=== PATIENT | male | born 1950 | race Caucasian/White ===

== ENCOUNTER 2020-12-25 08:07 | Outpatient (CLI) | payer MEDICARE, OTHER, SELFPAY ==
--- NOTE | ~2020-12-25 | XR_ITS ---
EXAMINATION: XR shoulder RT min 2V DATE: 12/25/2020 08:19 INDICATION: Chronic right shoulder pain. TECHNIQUE: 4 views of right shoulder were obtained. COMPARISON: None. FINDINGS: Bone alignment is normal. No fracture. Glenohumeral joint is normal. There is moderate acro mioclavicular joint osteoarthritis. IMPRESSION: 1. Moderate right acromioclavicular joint osteoarthritis. Reviewed, dictated and finalized at location A.
[2020-12-25 18:37] LABS: Basophils Absolute Auto 0.1 K/mm3 (0.0-0.1); Eosinophils Absolute Auto 0.2 K/mm3 (0-0.3); Eosinophils Percent Auto 2.5 % (0-4.4); Hematocrit 46.3 % (42.0-52.0); Hemoglobin 14.4 g/dL (14.0-18.0); Immature Granulocyte Absolute 0.03 K/mm3 (0.00-0.031); Immature Granulocyte Percent A 0.4 % (0-0.5); Lymphocytes Percent Auto 24.7 % (18.3-44.2); Mean Corpuscular HGB Conc 31.1 g/dl (32-36); Mean Corpuscular Hemoglobin 27.7 pg (26-34); Mean Corpuscular Volume 89.2 fl (80-100); Mean Platelet Volume 10.4 fl (7.4-10.4); Monocytes Absolute Auto 0.8 K/mm3 (0.1-0.6); Monocytes Percent Auto 10.7 % (2.6-8.5); Neutrophils Absolute Auto 4.4 K/mm3 (1.3-6.7); Neutrophils Percent Auto 60.7 % (45.5-73.1); Platelet Count Result 329 k/mm3 (150-375); Red Blood Count 5.19 M/mm3 (4.6-6.20); Red Cell Distribution Width 13.7 % (11.5-14.5); White Blood Count 7.3 K/mm3 (4.5-10.0)
[2020-12-25 18:45] LABS: Add Urine Microscopic? YES; Appearance Urine Clear (Clear); Bilirubin Urine Negative (Negative); Blood Urine Negative (Negative); Color Urine Yellow (Yellow); Glucose Urine UA Negative (Negative); Ketones Urine Negative (Negative); Leukocyte Esterase Ur Negative LEU/UL (Negative); Mucus Urine Rare /lpf; Nitrate Urine Negative (Negative); Protein Urine 1+ mg/dL (Negative); RBC Urine 0-2 /hpf (0-2); Specific Grav Ur 1.021 (1.001-1.035); Urobilinogen Urine Negative mg/dL (<2.0); WBC Urine 0-3 /hpf
[2020-12-25 18:49] LABS: Alanine Aminotransferase 33 U/L (4-50); Albumin Level 4.3 g/dL (3.5-5.1); Alkaline Phosphatase 93 U/L (38-126); Anion Gap 7 mmol/L (8-16); Aspartate Amino Transferase 36 U/L (17-59); Bilirubin,Total 0.9 mg/dL (0.2-1.3); Blood Urea Nitrogen 19 mg/dL (9-20); Calcium 9.5 mg/dL (8.4-10.2); Carbon Dioxide 27 mmol/L (22-30); Chloride 103 mmol/L (98-107); Cholesterol 173 mg/dL (0-200); Estimated Glomerular Filt Rate > 60; Glucose 108 mg/dL (65-110); HDL Direct 55 mg/dL; Potassium 4.3 mmol/L (3.4-5.0); Sodium 137 mmol/L (137-145); Triglycerides 147 mg/dL (<150)
[2020-12-25 19:01] LABS: LDL Cholesterol Direct 65 mg/dL
[2020-12-25 19:19] LABS: Erythrocyte Sedimentation Rate 10 mm/hr (0-20); Prostate Specific Antigen 2.2 ng/mL (< OR = 4.0)
[2020-12-25 19:53] LABS: Folic Acid 6.6 ng/mL (2.76->20)
== END 2020-12-25 08:08 | disposition home or self-care (01) ==
PROVIDERS: PCP Family Medicine; Visit Provider Family Medicine
DX: M19.011 Primary osteoarthritis, right shoulder (principal); D48.9 Neoplasm of uncertain behavior, unspecified; Z79.899 Other long term (current) drug therapy; Z12.5 Encounter for screening for malignant neoplasm of prostate; Z82.62 Family history of osteoporosis; I10 Essential (primary) hypertension; R51.9 Headache, unspecified
CPT/HCPCS: 36415; 73030; 80053; 80061; 81001; 82306; 82607; 82746; 84153; 84443; 85025; 85652; G0103

== ENCOUNTER 2021-02-15 08:34 | Outpatient (CLI) | payer MEDICARE, OTHER, SELFPAY ==
--- NOTE | ~2021-02-15 | XR_ITS ---
XR elbow LT min 3V 02/15/2021 08:46 Indication: Left elbow pain. No injury. Procedure: 4 views left elbow Comparison: No prior studies for comparison. Findings: There is a benign supracondylar process of the distal aspect of the humerus. No fracture, s ubluxation or dislocation. There is anatomic alignment. Impression: 1: No acute bone or joint abnormality. 2: Benign supracondylar process which can rarely be associated with nerve entrapment. Reviewed, dictated and finalized at location B. Impression: 1: No acute bone or joint abnormality. 2: Benign supracondylar process which can rarely be associated with nerve entr apment.
== END 2021-02-15 08:35 | disposition home or self-care (01) ==
PROVIDERS: PCP Family Medicine; Visit Provider Family Medicine
DX: M25.529 Pain in unspecified elbow (principal)
CPT/HCPCS: 73080

== ENCOUNTER 2021-02-16 15:00 | Outpatient (RCR) | payer MEDICARE, OTHER, SELFPAY ==
--- NOTE | 2021-01-12 11:52 | PTOPEVAL ---
Thank you for referring Ray Santos to [facility].? The patient is scheduled to be seen for therapy? 2 x/week for 5 weeks. Please review, sign, date and return this plan of care SHAWN. I agree with and certify that the following plan of care is medically necessary. Referring Physician Date Attending Provider: Tadeo Heath DO Diagnosis right shoulder Onset 6 months Cause unknown Subjective Information He had been performing therapy Query Text:As Reported By Patient/ on his own. Exercises consist Family of hanging from bar and selvin shoulder ext for chest stretching. Denies any injury to right UE. He c/o pain with UE in front holding onto bike. c/o sharp pain in the posterior shoulder with reaching. He reports minimal limitations with reaching and lifting. He has pain with lifting, reaching and riding his bike. Denies any pain waking him at night. Also c/o left elbow pain with pain with wrist motion and gripping strength. Pain Assessment Right Arm(s) Reported Pain Level 1 Pain Description Sharp Pain Frequency Chronic,Intermittent Lowest Pain Intensity 0 Greatest Pain Intensity 4 Pain Aggravating Factors Exercise/Activity Upper Extremity Range of Motion Scapular/ Shoulder Range of Motion Right Scapular: Retraction Hypomobile Scapular: Protraction Hypomobile Scapular Downward Rotation Hypomobile Scapular Upward Rotation Hypomobile Shoulder Flexion - Active 145 Shoulder Extension - Active 40 Shoulder Abduction - Active 135 Shoulder Medial Rotation - Active 65 Shoulder Lateral Rotation - Active 80 Scapular/Shoulder Range of Motion rotation measured with GH Comments joint abdcuted 90 dg Upper Extremity Muscle Strength Testing Scapular/Shoulder Left Shoulder Flexion Strength 4- Good - Shoulder Extension Strength 5 Normal Shoulder Abduction Strength 5 Normal Shoulder Medial Rotation Strength 5 Normal Shoulder Lateral Rotation Strength 5 Normal Right Shoulder Flexion Strength 4- Good - Shoulder Extension Strength 5 Normal Shoulder Abduction Strength 5 Normal Shoulder Medial Rotation Strength 4- Good - Shoulder Lateral Rotation Strength 4- Good - Shoulder Strength Comments pain with resistance Muscle Length Testing M
--- NOTE | 2021-02-16 15:36 | PTOPEVAL ---
Physical Therapy Discharge Summary Thank you for referring Ray Santos to [facility].? Ray has attended 8 therapy visits to address his shoulder pain. He demonstrates improved motion, strength and tolerance with daily task. He has achieved his therapy goals at this time. Will DC skilled therapy services at this time. Please review, sign, date and return this discharge summary SHAWN. I agree with and certify that the following plan of care is medically necessary. Referring Physician Date Attending Provider: Tadeo Heath DO Diagnosis right shoulder Onset 6 months Cause unknown Subjective Information Denies any pain with reaching Query Text:As Reported By Patient/ motion. Only has pain with Family push-up type motion. He is performing his HEP. Denies any problems with holding onto bike handles. Denies any limitations with ADL's, IADL's , sleeping or UE task. Denies any limitations with carrying objects. Pain Assessment Self Report Pain Assessment Right Arm(s) Reported Pain Level 0 Pain Frequency Intermittent Lowest Pain Intensity 0 Greatest Pain Intensity 1 Upper Extremity Range of Motion Scapular/ Shoulder Range of Motion Right Scapular: Retraction Hypomobile Scapular Upward Rotation Hypomobile Shoulder Flexion - Active 165 Shoulder Extension - Active 48 Shoulder Abduction - Active 161 Shoulder Medial Rotation - Active 70 Shoulder Medial Rotation - Active T10:Reach Behind the Back Shoulder Lateral Rotation - Active 85 Shoulder Lateral Rotation - Active T2:Reach Behind the Head Scapular/Shoulder Range of Motion rotation measured with GH Comments joint abducted 90 dg Upper Extremity Muscle Strength Testing Scapular/Shoulder Left Scapular Retraction - Middle Trapezius 3+ Fair + Scapular Retraction - Lower Trapezius 3- Fair - Shoulder Flexion Strength 5 Normal Shoulder Extension Strength 5 Normal Shoulder Abduction Strength 5 Normal Shoulder Medial Rotation Strength 5 Normal Shoulder Lateral Rotation Strength 5 Normal Right Scapular Retraction - Middle Trapezius 3+ Fair + Scapular Retraction - Lower Trapezius 3- Fair - Shoulder Flexion Strength 5 Normal Shoulder Extension Strength 5 Normal Shoulder Abduction Strength 5 Normal Shoulder Medial Rotation Strength 5 Normal Shoulder Lateral Rotation Strength 5 Normal Shoulder Strength Comments no pain with resistance Palpation Assessment Palpation tenderness with tightness of right upper/middle trap and teres minor PT
== END 2021-02-17 08:52 | disposition home or self-care (01) ==
LOC: ANHPT 15:00
PROVIDERS: PCP Family Medicine; Visit Provider Family Medicine
DX: M25.512 Pain in left shoulder (principal)
CPT/HCPCS: 97035; 97110; 97140; 97162

== ENCOUNTER 2021-04-06 08:46 | Outpatient (CLI) | payer MEDICARE, OTHER, SELFPAY | END 2021-04-06 08:47 | disposition home or self-care (01) | LOC: ANHBWCLAB 08:48 | PROVIDERS: PCP Family Medicine; Visit Provider Family Medicine | DX: E53.8 Deficiency of other specified B group vitamins (principal) | CPT/HCPCS: 36415; 82607 ==

== ENCOUNTER 2021-08-24 10:17 | Outpatient (CLI) | payer MEDICARE, OTHER, SELFPAY ==
[2021-08-26 15:48] LABS: H pylori Ag Stool Not Detected (Not Detected)
== END 2021-08-24 10:18 | disposition home or self-care (01) ==
PROVIDERS: PCP Family Medicine; Visit Provider Family Medicine
DX: K21.9 Gastro-esophageal reflux disease without esophagitis (principal)
CPT/HCPCS: 87338

== ENCOUNTER 2021-12-13 14:59 | Outpatient (CLI) | payer MEDICARE, OTHER, SELFPAY ==
[2021-12-16 13:23] LABS: H pylori Ag Stool Not Detected (Not Detected)
== END 2021-12-13 15:00 | disposition home or self-care (01) ==
PROVIDERS: PCP Family Medicine; Visit Provider Family Medicine
DX: K21.9 Gastro-esophageal reflux disease without esophagitis (principal)
CPT/HCPCS: 87338

== ENCOUNTER 2022-03-17 09:41 | Outpatient (CLI) | payer MEDICARE, OTHER, SELFPAY ==
[2022-03-17 19:14] LABS: Basophils Absolute Auto 0.1 K/mm3 (0.0-0.1); Eosinophils Absolute Auto 0.3 K/mm3 (0-0.3); Eosinophils Percent Auto 3.7 % (0-4.4); Hematocrit 46.8 % (42.0-52.0); Hemoglobin 14.8 g/dL (14.0-18.0); Immature Granulocyte Absolute 0.02 K/mm3 (0.00-0.031); Immature Granulocyte Percent A 0.3 % (0-0.5); Lymphocytes Absolute Auto 1.84 K/mm3 (0.9-3.2); Lymphocytes Percent Auto 23.5 % (18.3-44.2); Mean Corpuscular HGB Conc 31.6 g/dl (32-36); Mean Corpuscular Hemoglobin 27.6 pg (26-34); Mean Corpuscular Volume 87.3 fl (80-100); Mean Platelet Volume 10.2 fl (7.4-10.4); Monocytes Absolute Auto 0.7 K/mm3 (0.1-0.6); Monocytes Percent Auto 9.2 % (2.6-8.5); Neutrophils Absolute Auto 4.9 K/mm3 (1.3-6.7); Neutrophils Percent Auto 62.3 % (45.5-73.1); Platelet Count Result 346 k/mm3 (150-375); Red Blood Count 5.36 M/mm3 (4.6-6.20); Red Cell Distribution Width 13.8 % (11.5-14.5); White Blood Count 7.8 K/mm3 (4.5-10.0)
[2022-03-17 19:21] LABS: Alanine Aminotransferase 34 U/L (6-50); Albumin Level 4.7 g/dL (3.5-5.1); Alkaline Phosphatase 100 U/L (38-126); Anion Gap 13 mmol/L (8-16); Aspartate Amino Transferase 56 U/L (17-59); Bilirubin,Total 0.7 mg/dL (0.2-1.3); Blood Urea Nitrogen 21 mg/dL (9-20); Calcium 9.8 mg/dL (8.4-10.2); Carbon Dioxide 27 mmol/L (22-30); Chloride 101 mmol/L (98-107); Cholesterol 194 mg/dL (0-200); Estimated Glomerular Filt Rate > 60; Glucose 95 mg/dL (65-110); HDL Direct 47 mg/dL; Potassium 4.4 mmol/L (3.4-5.0); Sodium 141 mmol/L (137-145); Triglycerides 171 mg/dL (<150)
[2022-03-17 19:33] LABS: LDL Cholesterol Direct 93 mg/dL
[2022-03-17 19:49] LABS: Prostate Specific Antigen 2.9 ng/mL (< OR = 4.0)
== END 2022-03-17 09:42 | disposition home or self-care (01) ==
LOC: ANHBWCLAB 09:42
PROVIDERS: PCP Family Medicine; Visit Provider Family Medicine
DX: M25.519 Pain in unspecified shoulder (principal); I10 Essential (primary) hypertension; Z12.5 Encounter for screening for malignant neoplasm of prostate
CPT/HCPCS: 36415; 80053; 80061; 84153; 85025; G0103

== ENCOUNTER 2023-03-27 08:37 | Outpatient (CLI) | payer MEDICARE, OTHER, SELFPAY ==
[2023-03-27 19:09] LABS: Anion Gap 9 mmol/L (8-16); Blood Urea Nitrogen 19 mg/dL (9-20); Calcium 10.1 mg/dL (8.4-10.2); Carbon Dioxide 28 mmol/L (22-30); Chloride 101 mmol/L (98-107); Cholesterol 193 mg/dL (0-200); Estimated Glomerular Filt Rate > 60; Glucose 103 mg/dL (65-110); HDL Direct 47 mg/dL; Potassium 4.1 mmol/L (3.4-5.0); Sodium 138 mmol/L (137-145); Triglycerides 146 mg/dL (<150)
[2023-03-27 19:22] LABS: LDL Cholesterol Direct 91 mg/dL
[2023-03-27 19:39] LABS: Prostate Specific Antigen 5.1 ng/mL (< OR = 4.0)
[2023-03-27 20:14] LABS: Folic Acid 12.2 ng/mL (2.76->20)
== END 2023-03-27 08:38 | disposition home or self-care (01) ==
LOC: ANHBWCLAB 08:40
PROVIDERS: PCP Nurse Practitioner Adult Health; Visit Provider Nurse Practitioner Adult Health
DX: R03.0 Elevated blood-pressure reading, without diagnosis of hypertension (principal); I10 Essential (primary) hypertension; Z12.5 Encounter for screening for malignant neoplasm of prostate; E53.8 Deficiency of other specified B group vitamins
CPT/HCPCS: 36415; 80048; 80061; 82607; 82746; 84153; G0103

== ENCOUNTER 2023-04-13 09:32 | Outpatient (CLI) | payer MEDICARE, OTHER, SELFPAY ==
--- NOTE | ~2023-04-13 | XR_ITS ---
EXAMINATION: XR abdomen/kub 1V INDICATION: Unspecified abdominal pain TECHNIQUE: Supine views of the abdomen were obtained on 2 radiographs. COMPARISON: None FINDINGS: The bowel gas pattern is unremarkable. There are no dilated loops of bowel. No free intrape ritoneal gas is identified. There is moderate lumbar spondylosis. Mild osteoarthritis is noted in the hips. IMPRESSION: 1. No radiographic correlate for the patient's symptoms. Reviewed, dictated and finalized at location L. [employer]
--- NOTE | ~2023-04-13 | XR_ITS ---
Clinical Indication: Chest pain PA and lateral views of the chest: Comparison: None Findings: The lungs are clear, without evidence of focal consolidation or pleural effusion. Cardiome diastinal silhouette is within normal limits. Bones and soft tissues are unremarkable. Impression: Normal chest. Reviewed, dictated and finalized at location . F ACCOUNTING OFFICER Impression: Normal chest.
== END 2023-04-13 09:33 | disposition home or self-care (01) ==
LOC: ANHBWCIMG 09:34
PROVIDERS: PCP Nurse Practitioner Adult Health; Visit Provider Nurse Practitioner Adult Health
DX: R10.9 Unspecified abdominal pain (principal); R07.89 Other chest pain
CPT/HCPCS: 71046; 74018

== ENCOUNTER 2023-06-12 13:18 | Outpatient (CLI) | payer MEDICARE, OTHER, SELFPAY ==
--- NOTE | ~2023-06-12 | PE_ITS ---
EXAMINATION: PET_PETPSMAST_PT DATE: 06/12/2023 16:14 INDICATION: Malignant neoplasm of the prostate TECHNIQUE: 8.691 mCi of pipflufolastat F-18 (18-F-DCFPyL) was administered i.v. Low dose computed to mography (CT) images were acquired from the base of the brain to the base of the brain to the proxima l thighs for attenuation correction and anatomic localization. Positron emission tomography (PET) merced ges were acquired in the same distribution beginning 101 minutes after injection. Images including fu sed PET/CT images were reconstructed in axial, coronal, and sagittal planes. Automated exposure contr ol technique was employed. The dose-length product was 1057.52 mGy-cm. COMPARISON: None FINDINGS: Head/neck: Typical pattern of symmetric physiologic increased activity in the lacrimal, parotid and submandibula r glands as well as along the mucosa of the nasal and oral cavities, the monster-, naso- and hypopharynx, the glottis and esophagus. There is also a typical pattern of symmetric tiny foci of mild likely phy siologic neural ganglia uptake at a few bilateral cervical neural foramina. No pathologically enlarge d cervical lymphadenopathy or suspicious foci of increased uptake in the visualized head or neck. Chest: No pulmonary nodules, pneumonia, pulmonary edema or pleural effusion. Heart size normal. No pericardi al effusion thoracic aorta is normal in caliber. No pathologically enlarged or PSMA avid thoracic lym phadenopathy. Abdomen/pelvis/proximal thighs: Physiologic renal accumulation and excretion of activity in the kidneys, bladder and along portions o f ureters. Subcentimeter focus of increased PSMA activity at the left posterior prostate in the regio n of the junction with the left seminal vesicle with maximal SUV of 7.9. Additional small focus of mi ld uptake with maximal SUV of 3.5 posterior to the right external iliac vein potentially representing a small metastatic right obturator lymph node. Normal degree and slightly heterogenous pattern of in creased uptake throughout the liver and spleen without radiologic correlate or dominant PSMA avid les ion. The gallbladder, pancreas and bilateral adrenal glands are normal. Moderate uptake scattered thr oughout the bowels with typical duodenal and proximal jejunal predominance and without radiologic cor relate, also likely physiologic. No other abnormal foci of increased uptake or pathologically enlarge d lymphadenopathy in the abdomen, pelvis or proximal thighs. Musculoskeletal: Mild lumbar levocurvature with severe spondylosis. Small densely sclerotic bone islands at the right sacral ala and right posterior iliac spine. No suspicious lytic, blastic or PSMA avid bone lesions IMPRESSION: 1. Focus of increased uptake at the left posterior prostate near its confluence with the left seminal vesicle consistent with primary prostate cancer potentially with extension into the seminal vesicle. 2. Small focus of mild uptake equivocal for metastatic disease in a small right obturator lymph node. Reviewed, dictated and finalized at location A. H MAKER IMPRESSION: 1. Focus of increased uptake at the left posterior prostate near its confluence with the left seminal vesicle consistent with primary prostate cancer potentia lly with extension into the seminal vesicle. 2. Small focus of mild uptake equivocal for metastatic disease in a small right obturator lymph node.
== END 2023-06-12 13:19 | disposition home or self-care (01) ==
LOC: ANHIMG 13:21
PROVIDERS: PCP Nurse Practitioner Adult Health; Visit Provider Urology
DX: C61 Malignant neoplasm of prostate (principal)
CPT/HCPCS: 78815; A9595

== ENCOUNTER 2023-07-17 11:04 | Outpatient (CLI) | payer MEDICARE, OTHER, SELFPAY ==
--- NOTE | ~2023-07-17 | XR_ITS ---
Right Knee Technique: AP, lateral, and sunrise views were obtained. Clinical History: Pain Findings: No fracture or dislocation is seen. There is moderate degenerative change of the medial com partment. There is mild degenerative change of the lateral compartment, and minimal degenerative beckwith ge of the patellofemoral compartment. Soft tissues are unremarkable. No joint effusion is seen. Impression: Tricompartment degenerative change, as detailed above, worst in the medial compartment. Reviewed, dictated and finalized at location M. Impression: Tricompartment degenerative change, as detailed above, worst in the medial comp artment.
--- NOTE | ~2023-07-17 | XR_ITS ---
Left Knee Technique: AP, lateral, and sunrise views were obtained. Clinical History: Pain Findings: No fracture or dislocation is seen. Moderate tricompartmental degenerative change present. Soft tissues are unremarkable. No joint effusion is seen. Impression: Moderate tricompartmental osteoarthritis. Reviewed, dictated and finalized at [facility]. Impression: Moderate tricompartmental osteoarthritis.
== END 2023-07-17 11:05 | disposition home or self-care (01) ==
LOC: ANHBWCIMG 11:07
PROVIDERS: PCP Family Medicine; Visit Provider Family Medicine
DX: M79.671 Pain in right foot (principal); M79.672 Pain in left foot; M17.0 Bilateral primary osteoarthritis of knee
CPT/HCPCS: 73564; 73630

== ENCOUNTER 2024-06-25 01:00 | Day surgery (SDC) | payer MEDICARE, OTHER, SELFPAY ==
[2024-06-17 09:14] VITALS: BMI 32.5
--- OUTSIDE RECORDS SUMMARY | 2024-06-25 01:03 | XMS_ITS | Clinical Summary ---
Author Organization [facility] Address [address] [place] [address] Care Team Providers Care Laminating Machine Operator Helper Name Role Phone Unavailable Primary Care Provider Unavailabl e Source Comments [facility],non-owned Affiliates and Associated Physician Practices is amultiple site organization consisting of ambulatory clinics and hospital sitesin [place], [place], [place] and [place]. This disclosure is being madepursuant to the Care Everywhere program and may not contain all information available regarding this patient. Last updated 18.[facility] [employer] Social History Tobacco Use Types Packs/Day Years Used Date Smoking Tobacco: Never Assessed Sex and Gender Information Value Date Recorded Sex Assigned at Not on file Gender Identity Not on file Sexual Orientation Not on file Plan of Treatment Health Maintenance Due Date Last Done Comments COLOGUARD (AGES 45-75) - COL ON CA SCREENING 1948 COLON MONITORING 1948 COLONOSCOPY - COLON CA SCREENING 1948 CT COLONOGRAPHY - COLON CA SCREENING 1948 Colorectal Cancer Screening 1948 FIT - COLON CA SCREENING 1948 FLEX SIG - COLON CA SCREENING 1948 LIPID TESTING 1948 MEDICARE AWV 12 MONTHS 1948 HEPATITIS C SCREENING 08/07/1966 DTAP/TDAP/TD VACCINES (1 - Tdap) 08/12/1967 PNEUMOCOCCAL VACCINE 50+ (1 of 1 - PCV) 1998 ZOSTER VACCINE (1 of 2) 1998 Respiratory Syncytial Virus (RSV) Vaccine Pt: or over 60 yrs (1 - 1-dose 75+ series) 08/12/2023 COVID-19 VACCINE ( - 2023-2 5 season) 2023 INFLUENZA VACCINE (#1) 2023 DEPRESSION SCREENING 05/01/2024 HEPATITIS B VACCINE Aged Out No longe r eligible based on patient's age to complete this topic HIB VACCINE Aged Out No longer eligi ble based on patient's age to complete this topic HPV VACCINE Aged Out No longer eligi ble based on patient's age to complete this topic MENINGOCOCCAL (Group B) VACCINE Aged Out No longer eligible based on patient's age to complete this topic MENINGOCOCCAL VACCINE Aged Out No annette geetha eligible based on patient's age [place] [address]
--- OUTSIDE RECORDS SUMMARY | 2024-06-25 01:03 | XMS_ITS | Encounter Summary ---
Author Organization [facility] Address [address] [place] [address] Care Team Providers Care Manager Supplier Name Role Phone Unavailable Primary Care Provider Unavailabl e Encounter Details Date Type Department Care Team (Late st Contact Info) Description 05/24/2021 Lab Requisition [facility] [address] [place] [id number] Johann Harris MD [address] [phone] Social History Tobacco Use Types Packs/Day Years Used Date Smoking Tobacco: Never Assessed Sex and Gender Information Value Date Recorded Sex Assigned at Not on file Gender Identity Not on file Sexual Orientation Not on file documented as of this encounter Plan of Treatment Not on file documented as of this encounter Procedures Procedure Name Priority Date/Time Associated Diagnosis Comments DERMATOPATHOLOGY Routine 05/21/2021 12:0 0 AM CALCULATION REVIEWER documented in this encounter Results * DERMATOPATHOLOGY (05/21/2021 12:00 AM CALCULATION REVIEWER) Case Report Dermatopathology Report Case: [id number] Authorizing Provider: Johann Harris MD Collected: 05/21/2021 12:00 AM Ordering Location: [facility] Received: 05/24/2021 12:20 PM Pathologist: Kamaljit Villela MD Specimen: Skin, right cheek 2 6:29 PM CALCULATION REVIEWER DERMATOPATHOLOGY LABORATORY Final Diagnosis Specimen A. SKIN, right cheek: BASAL CELL CARCINOMA, NODULAR TYPE (C44.319) CALCINOSIS CUTIS (L94.2) 2 6:29 PM CALCULATION REVIEWER DERMATOPATHOLOGY LABORATORY Clinical History BCC. 2 6:29 PM [facility] Gross Description Specimen A: Received is one formalin filled container labeled with the patient's name and designated right cheek. The specimen consists of a shave biopsy measuring [id number]. Jar 0. 2 6:29 PM [facility] Microscopic Description Specimen A. SKIN, right cheek: Within the dermis there are aggregates of basaloid cells with a high nuclear to cytoplasmic ratio and peripheral palisading. Within the dermis, there are aggregates of homogenous amorphous basophilic material consistent with calcium. 2 6:29 PM [facility] Disclaimer An external and internal positive and negative controls are appropriate for the histochemical, immunohistochemical and immunofluorescence stain(s) in this case (if any), except where stated explicitly. The performance characteristics of the stain(s) cited in this report were developed and its performance characteristic determined by the Dermatopathology Laboratory at [facility], directed by Dr. Marzena Villela. These tests need not be, and therefore are not, approved by the [place] Food and Drug Administration. The tests are used for clinical purposes. Billing Codes Specimen Charges Stain Charges 60230 1 2 6:29 PM CALCULATION REVIEWER DERMATOPATHOLOGY LABORATORY Embedded Images 2 6:29 PM [facility] Pathology/Cytolog y TISSUE SPECIMEN FROM SKIN / Unknown 05/21/2021 05/24/2021 12:20 PM CALCULATION REVIEWER Johann Harris MD LAB - PATHOLOGY/CYTO LOGY ORDERABLES DERMATOPATHOLOGY LABORATORY [facility] - Department of Dermatology [address] [phone] documented in this encounter Visit Diagnoses Not on filedocumented in this encounter
--- OUTSIDE RECORDS SUMMARY | 2024-06-25 01:03 | XMS_ITS | Patient Health Summary ---
Author Organization [facility] Address [address] [place] [address] Care Team Providers Care Instruments Sales Representative Name Role Phone Unavailable Primary Care Provider Unavailabl e Note from [facility],non-owned Affiliates and Associated Physician Practices is amultiple site organization consisting of ambulatory clinics and hospital sitesin [place], [place], [place] and [place]. This disclosure is being madepursuant to the Care Everywhere program and may not contain all information available regarding this patient. Last updated 18.[facility] Social History Tobacco Use Types Packs/Day Years Used Date Smoking Tobacco: Never Assessed Sex and Gender Information Value Date Recorded Sex Assigned at Not on file Gender Identity Not on file Sexual Orientation Not on file Procedures * DERMATOPATHOLOGY(Performed 05/21/2021) * DERMATOPATHOLOGY(Performed 05/18/2011) Results * DERMATOPATHOLOGY (05/21/2021 12:00 AM BIOSTATISTICS PROFESSOR) Only the most recent of2 resultswithin the time period is included. Case Report Dermatopathology Report Case: [id number] Authorizing Provider: Johann Harris MD Collected: 05/21/2021 12:00 AM Ordering Location: [facility] Derm[facility] Lab Received: 05/24/2021 12:20 PM Pathologist: Kamaljit Villela MD Specimen: Skin, right cheek 2 6:29 PM BIOSTATISTICS PROFESSOR DERMATOPATHOLOGY LABORATORY Final Diagnosis Specimen A. SKIN, right cheek: BASAL CELL CARCINOMA, NODULAR TYPE (C44.319) CALCINOSIS CUTIS (L94.2) 2 6:29 PM BIOSTATISTICS PROFESSOR DERMATOPATHOLOGY LABORATORY Clinical History BCC. 2 6:29 PM BIOSTATISTICS PROFESSOR DERMATOPATHOLOGY LABORATORY Gross Description Specimen A: Received is one formalin filled container labeled with the patient's name and designated right cheek. The specimen consists of a shave biopsy measuring [id number]. Jar 0. 2 6:29 PM [facility] DERMATOPATHOLOGY LABORATORY Microscopic Description Specimen A. SKIN, right cheek: Within the dermis there are aggregates of basaloid cells with a high nuclear to cytoplasmic ratio and peripheral palisading. Within the dermis, there are aggregates of homogenous amorphous basophilic material consistent with calcium. 2 6:29 PM [facility] DERMATOPATHOLOGY LABORATORY Disclaimer An external and internal positive and negative controls are appropriate for the histochemical, immunohistochemical and immunofluorescence stain(s) in this case (if any), except where stated explicitly. The performance characteristics of the stain(s) cited in this report were developed and its performance characteristic determined by the Dermatopathology Laboratory at [facility], directed by Dr. Marzena Villela. These tests need not be, and therefore are not, approved by the [place] Food and Drug Administration. The tests are used for clinical purposes. Billing Codes Specimen Charges Stain Charges 20225 1 2 6:29 PM [facility] DERMATOPATHOLOGY LABORATORY Embedded Images 2 6:29 PM [facility] DERMATOPATHOLOGY LABORATORY Pathology/Cytolog y TISSUE SPECIMEN FROM SKIN / Unknown 05/21/2021 05/24/2021 12:20 PM [facility] Johann Harris MD LAB - PATHOLOGY/CYTO LOGY ORDERABLES DERMATOPATHOLOGY LABORATORY [facility] - Department of Dermatology [address] [phone]
--- OUTSIDE RECORDS SUMMARY | 2024-06-25 01:03 | XMS_ITS | Referral Summary ---
Author Organization [facility] Address [address] [place] [address] Care Team Providers Care Flight Test Supervisor Name Role Phone Unavailable Primary Care Provider Unavailabl e Source Comments [facility],non-owned Affiliates and Associated Physician Practices is amultiple site organization consisting of ambulatory clinics and hospital sitesin [place], [place], [place] and [place]. This disclosure is being madepursuant to the Care Everywhere program and may not contain all information available regarding this patient. Last updated 18.[facility] Social History Tobacco Use Types Packs/Day Years Used Date Smoking Tobacco: Never Assessed Sex and Gender Information Value Date Recorded Sex Assigned at Not on file Gender Identity Not on file Sexual Orientation Not on file Plan of Treatment Not on file
--- OUTSIDE RECORDS SUMMARY | 2024-06-25 01:04 | XMS_ITS | Continuity of Care Document ---
Author Name [facility] Organization [facility] Care Team Providers Care Bushel Worker Name Role Phone [facility] Unavailable Unavailable Problems Combined list of problems from [facility] facilities. It does not include entries that were removed or entered in error. 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 Medication Details Route Status Patient Instructions Prescription Expires Prescription Number Last Dispense Date Ordering Provider Order Date Order Qty Source ACETAMINOPH EN 325MG TAB TAKE TWO TABLETS BY MOUTH FOUR TIMES A DAY NEEDED ORAL ACTIVE SHAY RAMIRES 2022 [facility] Meloxicam (Meloxicam) , 15mg, Tablet, Oral, [place] Pharmac, 1000 Ea. Bottle Active [id number] 2023 30 Pharmac y Data Transac tion Service Facilit y Meloxicam (Meloxicam) , 15mg, Tablet, Oral, [place] Pharmac, 1000 Ea. Bottle Active [id number] 4 2023 30 Pharmac y Data Transac tion Service Facilit y PANTOPRAZOL E SODIUM (pantoprazo le sodium), 40 MG, TK OLGUIN, ORAL, AJANTA PHARMA L, 30 ea. PACKET Cancele d [id number] : 2023 0 Pharmac y Data Transac tion Service Facilit y PANTOPRAZOL E SODIUM (pantoprazo le sodium), 40 MG, GRANPKT , ORAL, AJANTA PHARMA L, 30 ea. PACKET Cancele d [id number] : 2022 0 Pharmac y Data Transac tion Service Facilit y PANTOPRAZOL E SODIUM (pantoprazo le sodium), 40 MG, GRANPKT , ORAL, AJANTA PHARMA L, 30 ea. PACKET Active [id number] 4 2023 90 Pharmac y Data Transac tion Service Facilit y PANTOPRAZOL E SODIUM (PANTOPRAZO LE SODIUM), 40 MG, TABLET , ORAL, MYLAN, 90 ea. BOTTLE Active [id number] 4 2023 90 Pharmac y Data Transac tion Service Facilit y Allergies, Adverse Reactions, Alerts Combined list of allergies from Department of Defense and Veterans Affairs facilities. It does not include entries that were removed or entered in error. Substance Category Reaction Severity Reaction type Status Date Reported Comments Source CONTRAST MEDIA Propensity to adverse reactions to drug (finding) Urticaria active 3 [facility] LISINOPRIL Propensity to adverse reactions to drug (finding) Cough active 4 [facility] SULFA DRUGS Propensity to adverse reactions to drug (finding) Urticaria active 3 [facility] SULFA-DRUGS Drug allergy (disorder) Unknown active 5 [facility] Immunizations Combined list of available immunizations from the Department of Defense and Veterans Affairs facilities. Immunization Series Date Given Administered By Site Reaction Lot Number CVX Code Drug Engineering Drafter Status Comments Source tuberculin skin test; purified protein derivative solution, intradermal 1 2001 Unknown, Provider [id number] Sanofi Pasteur ([facility]) complet ed tuberculi n skin test; purified protein derivativ e solution, intraderm al DoD rabies vaccine, for intramuscular injection RETIRED CODE 3 1999 Unknown, Provider 18 () complet ed rabies vaccine, for intramusc ular injection RETIRED CODE DoD Tristanian Encephalitis Vaccine SC 3 1999 Unknown, Provider 39 () complet ed Tristanian Encephali tis Vaccine SC DoD rabies vaccine, for intramuscular injection RETIRED CODE 2 1999 Unknown, Provider [id number] 18 Sanofi Pasteur ([facility]) complet ed rabies vaccine, for intramusc ular injection RETIRED CODE DoD Tristanian Encephalitis Vaccine SC 2 1999 Unknown, Provider [id number] A 39 Sanofi Pasteur ([facility]) complet ed Tristanian Encephali tis Vaccine SC DoD rabies vaccine, for intramuscular injection RETIRED CODE 1 1999 Unknown, Provider [id number] 18 Sanofi Pasteur ([facility]) complet ed rabies vaccine, for intramusc ular injection RETIRED CODE DoD Tristanian Encephalitis Vaccine SC 1 1999 Unknown, Provider [id number]*194 A 39 Sanofi Pasteur ([facility]) complet ed Tristanian Encephali tis Vaccine SC DoD hepatitis B vaccine, adult dosage 3 1999 Unknown, Provider [id number] 43 Lederle (LED) complet ed hepatitis B vaccine, adult dosage DoD hepatitis A vaccine, adult dosage 2 1999 Unknown, Provider [id number] 52 [place]ederle (LED) complet ed hepatitis A vaccine, adult dosage DoD yellow fever vaccine 1 1999 Unknown, Provider [id number] 37 Connaught (CON) complet ed yellow fever vaccine [facility] tuberculin skin test; purified protein derivative solution, intradermal 1 1999 Unknown, Provider [id number] 96 [place] (CON) complet ed tuberculi n skin test; purified protein derivativ e solution, intraderm al [facility] meningococcal polysaccharid e vaccine (MPSV4) 1 1999 Unknown, Provider [id number] 32 [place] (CON) complet ed meningoco ccal polysacch aride vaccine (MPSV4) [facility] typhoid vaccine, parenteral, other than acetone-kille d, dried 1 1999 Unknown, Provider [id number] 41 [place] (CON) complet ed typhoid vaccine, parentera l, other than acetone-k illed, dried [facility] tetanus and diphtheria toxoids, adsorbed, preservative free, for adult use (2 Lf of tetanus toxoid and 2 Lf of diphtheria toxoid) 1 1999 Unknown, Provider [id number] 09 [place]naught (CON) complet ed tetanus and diphtheri a toxoids, adsorbed, preservat grisel free, for adult use (2 Lf of tetanus toxoid and 2 Lf of diphtheri a toxoid) [facility] poliovirus vaccine, inactivated 1 1999 Unknown, Provider [id number] 10 Mynor (CON) complet ed polioviru s vaccine, inactivat ed DoD hepatitis B vaccine, adult dosage 2 1999 Unknown, Provider [id number] 43 Merck (MSD) complet ed hepatitis B vaccine, adult dosage DoD hepatitis B vaccine, adult dosage 1 1999 Unknown, Provider [id number] 43 SmithKline (SKB) complet ed hepatitis B vaccine, adult dosage DoD hepatitis A vaccine, adult dosage 1 1999 Unknown, Provider [id number] 52 Merck (MSD) complet ed hepatitis A vaccine, adult dosage DoD Vital Signs Combined list of inpatient and outpatient Vital Signs from Department of [facility] and [facility], ranging from 12 months to all on record, depending upon the facility. Vital Sign Value Date Comments Source SYSTOLIC BLOOD PRESSURE 133 03/14/2024 10:41:02 [facility] DIASTOLIC BLOOD PRESSURE 82 03/14/2024 10:41:02 [facility] PULSE OXIMETRY 97 03/14/2024 10:41:02 [facility] WEIGHT 238.6 03/14/2024 10:41:02 [facility] BMI 32 kg/m2 03/14/2024 10:41:02 [facility] PAIN 0 03/14/2024 10:41:02 [facility] TEMPERATURE 97.8 03/14/2024 10:41:02 [facility] PULSE 71 03/14/2024 10:41:02 [facility] RESPIRATION 18 03/14/2024 10:41:02 [facility] Encounters Combined list of: 1) Encounters from Department of Veterans Affairs facilities going backup to the last 18 months, not all VA inpatient encounters are included; 2) Encounters from the Department of Defense facilities going backup to 280 months. Location Location Details Encounter Type Encounter Number Reason For Visit Attending Provider ADM Date DC Date Status Disposition Source [facility] OUTPATIENT [id number] PAOLO BLACK RA F 06/05 Released w/o Limitations [facility](Billie gency Rm) [facility] Outpatient Encounter [id number] 03/24 [facility] OFFICE O/P [place] 60-74 MIN [id number] Diagnos is: ICD-10- CM H90.3 Sensori neural hearing loss, donny BarcenasSHAY L 03/24 [facility] OFFICE O/P EST MOD 30-39 MIN [id number] Diagnos is: ICD-10- CM Z98.49 Catarac t extract ion status, unspeci fied eye LAURA WARREN TTHEW C 04/26 [facility] HEARING AID REPAIR/MOD IFYING [id number] Diagnos is: ICD-10- CM H90.3 Sensori neural hearing loss, PAVEL Walker B 05/09 [facility] HEARING AID FITTING/CH ECKING [id number] Diagnos is: ICD-10- CM H90.3 Sensori neural hearing loss, PAVEL Walker B 06/05 [facility] N [facility] TYMPANOMET RY & REFLEX THRESH [id number] Diagnos is: ICD-10- CM H90.3 Sensori neural hearing loss, PAVEL Walker B 06/05 [facility] HEARING AID FITTING/CH ECKING [id number] Diagnos is: ICD-10- CM H90.3 Sensori neural hearing loss, donny rodriguez TATIANNAPAVEL 08/01 [facility] OFFICE O/P EST MOD 30 MIN [id number] Diagnos is: ICD-10- CM D07.5 Carcino ma in situ of prostat e SHAY RAMIRES 03/14 [facility] Procedures Combined list of: 1) Procedures from Department of Veterans Affairs facilities going back up to thelast 18 months, not all [place] non-surgical procedures are included; 2) All procedures from the Department of Defense facilities. Procedure Procedure Type Code Date Perfomer Comments Sourc e REMOVAL OF SUTURES; BY A PHYSICIAN OTHER THAN THE PHYSICIAN WHO ORIGINALLY CLOSED THE WOUND 07/02/2002 [facility] BIOPSY OF SKIN, SUBCUTANEOUS TISSUE AND/OR MUCOUS MEMBRANE (INCLUDING SIMPLE CLOSURE), UNLESS OTHERWISE LISTED; SINGLE LESION 06/28/2002 [facility] CARDIOVASCULAR STRESS TEST USING MAXIMAL OR SUBMAXIMAL TREADMILL OR BICYCLE EXERCISE,CONTINUOUS ELECTROCARDIOGRAPHIC MONITORING,AND/OR PHARMACOLOGICAL STRESS;W SUPERVISION,INTERPRETATION AND REPORT 06/27/2002 [facility] Social History Combined list of available smoking, tobacco, and other social history from Department of Defense and Veterans Affairs facilities. Social History Type Response Date Comment Sourc e Tobacco smoking status NHIS VA-TOBACCO NEVER USED CIGARETTES 03/14/2024 [facility] of [facility] 03/14/2024 [facility] History of tobacco use [place]-TOBACCO NEVER USED 03/24/2023 [facility] This section is an empty social history section. DoD
--- OUTSIDE RECORDS SUMMARY | 2024-06-25 01:04 | XMS_ITS ---
Author Name [facility] Organization [facility] Address [address] [place] [address] Care Team Providers Care Timber Spotter Name Role Phone SHAY RAMIRES Primary Care Provider Constantino cherry Insurance Providers: All historical and current Section Date Range: From patient's date of to the date document was created. This section includes the names of all active insurance providers for the patient. Insurance Provider Type of Coverage Plan Name Start of Policy Coverage End of Policy Coverage Group Number Member ID Insurance Provider's Telephone Number Policy Palencia's Name Patient's Relationship to Policy Palencia MEDICARE (WNR) MEDICARE (M) PART A Jul 30, 2013 PART A [id number] RADHAJULIA RIBEIRO PATIENT MEDICARE (WNR) MEDICARE (M) PART B Jul 30, 2013 PART B [id number] JULIA GARCIA PATIENT Selected Encounter This section includes the information on record at [place] for the Encounter. Date/Time Encounter Type Encounter Description Reason Provider Source Aug 02, 2023 08:00 AM HEARING AID FITTING/CHECKIN G AUDIOLOGY ICD-10-CM H90.3 Sensorineural hearing loss, bilateral JOSE EDUARDO CAMPUZANO IHMari Encounter Template Text not used by VA Assessments - Encounter Diagnoses This section includes the primary and secondary diagnoses documented for the Encounter. Date/Time Primary/Secondary Diagnosis Diagnosis Name Provider Source Aug 02, 2023 08:26 AM PRIMARY Sensorineural hearing loss, bilateral [place] CAMPUZANO [facility] Social History: Smoking Status (Most current) and Tobacco Use (All prior to encounter date) This section includes the most current, and the historical, smoking and tobacco- related health factors from the [place] facility where the Encounter took place. Current Smoking Status This section includes the most current smoking, or tobacco-related health factor, from the [place] facility where the Encounter took place. Date/Time Current Smoking Status Comment Facil ity Mar 24, 2023 09:00 AM VA-TOBACCO NEVER USED [facility] Encounter Notes: All associated encounter notes This section contains the clinical notes associated to the Encounter. Date/Time Encounter Note(s) Provider Source Aug 02, 2023 08:05 AM AUDIOLOGY MAP CLERK NOTE: LOCAL TITLE: HEARING AIDS ST STANDARD TITLE: AUDIOLOGY MAP CLERK NOTE DATE OF NOTE: AUG 02, 2023@08:05 ENTRY DATE: AUG 02, 2023@08:05:31 AUTHOR: PAVEL CAMPUZANO EXP COSIGNER: URGENCY: STATUS: COMPLETED SUBJECT: audio Pt was seen for fitting of new hearing aid(s). Otoscopy reveals clear ear canals. Aid(s) were programmed to First Fit and adjusted to NAL-NL2 prescriptive target. [x] provider initiated visit Family members were: [] Present [x] Not present [x] Conformity eval completed [] Conformity eval unavailable [] Disposable batteries [x] Rechargeable batteries [] new user []Email and phone number verified with patient for VVC purposes. []Digital divide consult entered []Digital divide consult unnecessary. Patient has access to equipment. [x] experienced user Today, pt was fit with Phonak MokhaOrigineo L90-R with canal lock c shell molds. The aids are programmed as: auto, MB=VC, BT to iPhone. right: [id number] left: [id number] trial period: 12/06/2023 The following standardized education was provided and the pt was able to demonstrate understanding after the education: o Introduction to aids (red/blue, right/left) o Parts of the aid o Batteries and feller buncher operator, if applicable o Insertion/removal of aids. o Volume control, if applicable o Realistic expectations of aids. o Cleaning/maintenance of aids. Wax filters. Bird In Hand. o Review of the items: soft case, hard case o Review of the paperwork: battery reorder form, instruction manual, IOI survey, clinician name/number, L&D form o Review trial period and warranty o Bluetooth handout, if applicable Real-ear measures run and targets met. Vet reported comfort with gain. Went over VC usage. Pt proficient with insertion/removal of aids. Verbalized understanding of hearing aid care/maintenance. Vet reports that his current right Signia PURE CHARGE-GO 7NX R JAYSON worn with canal lock mold is distorted like a broken or blown speaker. Will send for repair then ship to his home: [address] [place] [address] [place] [address] Rec: 1. Full-time hearing aid use to facilitate adjustment to amplification. 2. Contact [facility]iology Clinic [phone] or [phone] for repairs and/or adjustments as needed. (3. Fill out IOI in 30 days Time for appt: 48 min /nida/ Vicente GARRISON Staff Environmental Change Analyst, Surgery Service Signed: 08/02/2023 08:26 PAVEL CAMPUZANO [facility]
--- OUTSIDE RECORDS SUMMARY | 2024-06-25 01:04 | XMS_ITS | Data Portability ---
Author Organization [place] - [facility] [employer], Main Office Address [address] [place] [address] Care Team Providers Care Weaving Loom Operator Name Role Phone SUKH MAK Primary Care Provider SUKH MAK Referring Provider [phone] Assessment Encounter Date Assessment Date Assessment LastModified by Organization Details LastModified Time 08/09/2023 08/09/2023 72-year-old male presents for evaluation of bilateral knees, left worse than right. He reports pain since 1984 when he was serving in the [employer]. He reports he also had a ski injury where he injured his bilateral MCL that was treated non operatively. He reports symptoms are getting progressively worse, currently 10/08. He also has swelling and pain after walking distances or with activity. He has been doing physical therapy and transition to a home exercise program. He has not taken any medications. He has a history of a left knee meniscus procedure done in [facility] about 10 years ago when he was living over there. He is currently retired. Review of systems per patient questionnaire Physical exam: He has tenderness palpation of the medial and lateral joint lines of bilateral knees. Nonantalgic gait. Neutral alignment. Range of motion 0-130 with crepitus. Stable ligaments. Neurovascular intact. 5/5 knee flexion-extensio n strength. X-rays of the bilateral knees were reviewed, demonstrating moderate degenerative changes of the bilateral knees, of the mediolateral compartments with osteophytes and joint space narrowing He is bilateral knee arthritis, left worse than the right. We will continue conservative management. He should continue his home exercise program, and we also prescribed him meloxicam. We can follow-up in 2 months as needed. We discussed next steps if he fails to have improvement would be to consider cortisone injections. He states that he does not want injections or surgery. [email or web address] Not available 08/09/2023 10:39:00 Plan of Treatment Reminders Order Date Submit Date Provider Last Modified By Organization Details Last Modified Time Details Appointments None recorded . Lab None recorded . Referral None recorded . Procedures None recorded . Surgeries None recorded . Imaging None recorded . Medication Orders Mobic 15 mg tablet 024 08/09/19 [email or web address] [id number], [address], [place], [place], [id number], 11:45:24 Patient TargetsNo targets recorded. Patient InstructionsNo instructions recorded. Reason for Referral None Reported. Results Created Date Observation Date Name Description Value Unit Range Abnormal Flag Note LastModifiedBy Organization Detail LastModifiedTime 08/01/19 24 07/17/2023 XR, knee No observ ation record ed. [address], [address], 08/01/2023 16:29:05 08/01/19 24 07/18/2023 XR, knee No observ ation record ed. [address], [address], 08/01/2023 16:29:44 08/02/19 24 07/17/2023 XR, knee, 4 or more view No observ ation record ed. [email or web address] Not Available 06/2023 15:41:50 Result Notes None recorded. Problems Name Problem SNOMED Code Status Onset Date Resolution Date Notes Provider Name and Address Organization Details Recorded Time Pain of bilateral knee joints 20716180584561 4 Active 2023 TANIA Denise [employer] 09:29:19 Problem Notes None recorded. Procedures Surgical History Date Name Laterality Status Provider Name and Address Organization Details Recorded Time Knee Surgery completed TANIA Denise [employer] 08/09/2023 09:28:11 Imaging Results Imaging Date Name Status [facility]Modified by [facility] Details LastModified Time 07/17/2023 XR, knee completed [address], [address], 08/01/2023 16:29:05 07/18/2023 XR, knee completed [address], [place], [address], 08/01/2023 16:29:44 07/17/2023 XR, knee, 4 or more view completed [email or web address] Information not available 08/02/2023 15:41:50 Procedure Notes None recorded. Medical Equipment None Reported. Allergies Allergen ID Allergen Name Allergen Category Reaction Reaction Severity Criticality Documentation Date Start Date Code Code System Note Provider Name and Address Organization Details Recorded Time 25860 sulfur dioxide medicatio n hives Not available Not available 08/09/2023 96810 79 RxNorm TANIA Denise [employer] 4 09:25:32 84588 Iodinated contrast media (substanc e) medicatio n hives Not available Not available 08/09/2023 09413 2004 SNOMED TANIA Denise [employer] 4 09:25:56 Medications Name Sig Start Date Stop Date Status Note LastModified by Organization Details LastModified Time ofloxacin 0.3 % eye drops 08/08 completed Not Available Not Available Not Available meloxicam 15 mg tablet TAKE 1 TABLET BY MOUTH EVERY DAY 2023 active Not Available Not Available Not Avai lable pantoprazol e 20 mg tablet,radha yed release TAKE 1 TABLET BY MOUTH TWICE DAILY 08/08 completed Not Available Not Available Not Available ketorolac 0.5 % eye drops 08/08 completed Not Available Not Available Not Available prednisolon e acetate 1 % eye drops,suspe nsion 08/08 completed Not Available Not Available Not Available pantoprazol e 40 mg tablet,radha yed release TAKE 1 TABLET BY MOUTH EVERY MORNING active Not Available Not Available No t Available pantoprazol e DR 40 mg granules delayed-rel ease for susp in packet MIX THE CONTENTS OF 1 PACKET IN LIQUID AND DRINK BY MOUTH DAILY 08/08 completed Not Available Not Available Not Available PreviDent 5000 Booster Plus 1.1 % dental paste USE ONCE DAILY AT NIGHT BEFORE BEDTIME. NOTHING BY MOUTH FOR 30 MINS AFTER USE. DONT SWALLOW active Not Available Not Available No t Available Vitals Date Recorded Body height Body mass index (BMI) Body weight Pain severity - 0-10 verbal numeric rating [Score] - Reported Provider Name and Address Organization Details Last Updated DateTime 08/09/2023 182.88 cm 31.9 kg/m2 085753.21 g 5 TANIA Denise [facility] [employer] 08/09/2023 09:25:14 Social History Question Answer Notes LastModified by Organizat ion Details LastModified Time Tobacco Smoking Status Unknown If Ever Smoked TANIA Denise null, [facility] [employer] [facility] 08/09/2023 09:27:36 What Is Your Level Of Alcohol Consumption? None [email or web address] Information not available 08/09/2023 What Was The Date Of Your Most Recent Tobacco Screening? 08/09/2023 [email or web address] Information not available 08/09/2023 Sex: Unknown Functional Status None recorded. Mental Status None recorded. Family History Relationship Description Onset Age of this Age Resolved Age Notes LastModified by Organization Details LastModified Time Mother Heart disease [email or web address] Not available 2023 09:26:39 Mother Hypertensive disorder Not available 2023 09:26:55 Mother Diabetes mellitus [email or web address] Not available 2023 09:27:04 Medical History Condition Response CANCER: SPECIFY Y Past Encounters Encounter ID Performer Location Encounter Start Date Encounter Closed Date Diagnosis/Indication Diagnosis SNOMED-CT Code Diagnosis ICD10 Code Diagnosis Note [id number] Tadeo Tran MD [facility] [address] [place] [address] 08/09/2023 09:17:03 08/09/2023 09:50:05 Pain of bilateral knee joints 8324951400 17931 M25.569 Health Concerns Section Related Observation LastModified by Organization Detai ls LastModified Time None Recorded Concern Status LastModified by Organization Details LastModified Time None Recorded Advance Directives Directive None Recorded Payers Encounter Date Sequence Insurance Name Policy Number Policy Palencia Covered Member ID Palencia Member ID Guarantor Name 08/09/2023 1 [employer]-[place] (MEDICARE) Ray Santos [id number] Ray Santos 08/09/2023 2 WPS - FOR LIFE (MEDICARE SUPPLEMENT) Ray Santos [id number] Ray Santos
--- OUTSIDE RECORDS SUMMARY | 2024-06-25 01:04 | XMS_ITS | Clinical Summary ---
Author Organization [facility] Address [address] [place] [address] Care Team Providers Care Data Migration Consultant Name Role Phone Unavailable Primary Care Provider Unavailabl e Encounters Date Type Department Care Team Description 05/29/2024 External Device Data [facility] ABSTRACTION Provider, Abstract 05/23/2024 External Device Data [facility] ABSTRACTION Provider, Abstract from Last 3 Months Social History Tobacco Use Types Packs/Day Years Used Date Smoking Tobacco: Never Assessed Sex and Gender Information Value Date Recorded Sex Assigned at Not on file Legal Sex Male 9:08 AM CDT Gender Identity Not on file Sexual Orientation Not on file Plan of Treatment Health Maintenance Due Date Last Done Comments DTAP/TDAP/TD VACCINES (1 - Tdap) 08/12/1967 COLORECTAL SCREENING 1993 Colorectal Cancer Screening 1993 FIT-DNA Q 3 years 1993 FIT/FOBT Q 1 year 1993 Flex Sig/CT Colonography Q 5 years 1993 PNEUMOCOCCAL VACCINE 65+ YEARS (1 of 1 - PCV) 08/11/18 99 ZOSTER VACCINE (1 of 2) 1998 RSV VACCINE (60+ or ) (1 - 1-dose 75+ series) 08/12/2023 INFLUENZA VACCINE (#1) [address] [place] [id number] [employer]
--- OUTSIDE RECORDS SUMMARY | 2024-06-25 01:04 | XMS_ITS | Encounter Summary ---
Author Name [facility] [place] Organization [facility] [place] Address [address] [place] [address] Care Team Providers Care Dental Insurance Biller Name Role Phone SHAY RUELAS Primary Care Provider Constantino cherry Insurance Providers: [...] PART A Jul 30, 2013 PART A [id number] JULIA GARCIA PATIENT MEDICARE (WNR) MEDICARE (M) PART B Jul 30, 2013 PART B [id number] JULIA GARCIA PATIENT Selected Encounter This section includes the information on record at [place] for the Encounter. 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 Date/Time Primary/Secondary Diagnosis Diagnosis Name Provider Source Mar 14, 2024 11:10 AM PRIMARY Carcinoma in situ of prostate GT RUELAS [facility] Mar 14, 2024 11:10 AM SECONDARY Contact with and exposure to other hazardous substances GT RUELAS [facility] Mar 14, 2024 11:10 AM SECONDARY Other specified malignant neoplasm of skin, unspecified GT RUELAS [facility] Mar 14, 2024 11:10 AM SECONDARY Sensorineural hearing loss, bilateral GT RUELAS [facility] Vital Signs: All taken on the encounter date This section contains inpatient and outpatient Vital Signs collected on the date of the Encounter. Date/Time Temperature Pulse Blood Pressure Respiratory Rate SP02 Pain Height Weight Body Mass Index Source Mar 14, 2024 10:41 AM 97.8 71 133/82 18 97 0 238.6 32 [facility] N Social History: Smoking Status (Most current) and Tobacco Use (All prior to encounter date) This section includes the most current, and the historical, smoking and tobacco- related health factors from the [place] facility where the Encounter took place. Current Smoking Status This section includes the most current smoking, or tobacco-related health factor, from the [place] facility where the Encounter took place. Date/Time Current Smoking Status Comment Mónica price Mar 14, 2024 10:30 AM [place]-TOBACCO NEVER U SED CIGARETTES [facility] Tobacco Use History This section includes a history of the smoking, or tobacco-related health factors, that were collected on or before the date of the Encounter. The data comes from the [place] facility where the Encounter took place. Date/Time Smoking Status/Tobacco Use Comment Shira wilder Mar 14, 2024 10:30 AM [place]-TOBACCO NEVER U SED OTHER TYPE [facility] Mar 24, 2023 09:00 AM [place]-TOBACCO NEVER USED [facility] Encounter Notes: All associated encounter notes This section contains the clinical notes associated to the Encounter. Date/Time Encounter Note(s) Provider Source Mar 14, 2024 10:49 AM PRIMARY CARE NOTE: LOCAL TITLE: PRIMARY CARE PROVIDER ESTABLISHED VISIT ST STANDARD TITLE: PRIMARY CARE NOTE DATE OF NOTE: MAR 14, 2024@10:49 ENTRY DATE: MAR 14, 2024@10:49:53 AUTHOR: SHAY RUELAS EXP COSIGNER: URGENCY: STATUS: COMPLETED PRIMARY CARE PROVIDER ESTABLISHED VISIT STL Has ADDENDA ESTABLISHED PATIENT [id number]: REASON FOR VISIT/CHIEF COMPLAINT: Annual visit. New 03/2023. accompanied him. Sees Dr. Mc Patel with [facility] in [place], [place]. Plans to continue there. Discussed dual care. Dx'd with prostate cancer, treatment in the private sector ongoing. s/p XRT, on hormone shots now. Was on lisinopril, but taken off due to cough. He will record home bps and let his PMD know. [facility]. Knees , shoulders, neck hurt, he was sent to PT by his PMD. Not too helpful. Has declined further work up such as injections or surgery. Take OTCs for pain relief. No prescribed medications. Active. UTD with immunizations. ALLERGIES: SULFA DRUGS, CONTRAST MEDIA ALLERGY REVIEW: Allergy list reviewed and remains current. MEDICATION RECONCILIATION: I have reviewed the patient's medication list with the patient and/or his/her care-swage tender. Handwritten corrections, additions and/or deletions were made to the list. Corrected Outpatient Medication List was provided to the patient/caregiver. Active Outpatient Medications (including Supplies): Active Non-VA Medications Status 1) Non-VA ACETAMINOPHEN 325MG TAB 650MG BY MOUTH FOUR ACTIVE TIMES A DAY NEEDED VITALS (most recent, as listed in the electronic record): B/P: 133/82 (03/14/2024 10:41) Pulse: 71 (03/14/2024 10:41) Temperature: 97.8 F [36.6 C] (03/14/2024 10:41) Weight: 238.6 lb [108.23 kg] (03/14/2024 10:41) Height: 72 in [182.9 cm] (03/24/2023 08:55) BMI: 32.4 Pain: 0 (03/14/2024 10:41) (0-10 scale) PMH: PSH: # left knee surgery 2010 # hearing loss # skin cancer FH: diabetes in mother and Type 1 in his sister. ROS: DENIES CP SOB DIZZINESS HEAT/COLD INTOLERANCE WT LOSS/GAIN BOWEL/BLADDER PROBLEMS HEALTH MAINT: COLONOSCOPY 2019 at [facility] PSA/LEX TETANUS PNEUMOVAX ZOSTAVAX HIV TESTING SH: SMOKE never ETOH denies TATTOOS [employer] 03/30/1978 TO 09/28/1992 [employer] 08/02/1968 TO 07/31/1970 [employer]. , 3 children, one passed from cancer. 5 grands. PE: well appearing gentleman. HEENT: PERRLA EOMI hearing aids NECK: SUPPLE CV: RRR NO M/R/G LUNGS: CLEAR ABD: SOFT NT BS ACTIVE EXT: NO EDEMA PULSES INTACT NEURO: A/O CNI, GAIT NML A/P # left knee pain : arthroscopic surgery 2010, given [facility], PT, [facility], rec therapy. # hearing loss: [facility] # skin cancer: f/up with private dermatology. # prostate cancer: f/b private urology. XRT/hormone RX. HM: Given all clinc/ER information and contact numbers. Aware that does not have emergency services nor a designated walk in clinic. [place] 03/2023. DISCUSSED DIET AND EXERCISE KEEP FUTURE APPOINTMENTS PATIENT VOICED UNDERSTANDING OF PLAN OF CARE RTC 12 mo, prn PREVENTION & SCREENING: ALCOHOL: Clinical Reminder not due now or within a month BLOOD PRESSURE: Clinical Reminder not due now or within a month HEMOGLOBIN A1C: Clinical Reminder not due now or within a month /nida/ SHAY RUELAS Staff Physician Signed: 03/14/2024 11:10 03/14/2024 ADDENDUM STATUS: COMPLETED Toxic Exposure Screening Follow-Up - NS,P: Exposure Concern(s): 03/14/2024 Agent Yellowstone - Toxic Exposure Concern 03/24/2023 Doesnt Know - Toxic Exposure Concern Follow-up Question(s): 03/14/2024 No Questions - Toxic Exposure Concern 03/24/2023 No Questions - Toxic Exposure Concern [place]/caregiver has health or medical concerns related to their concern of environmental exposure. Concern: prostate cancer The following connections were provided to the [place]/caregiver: No connections needed at this time /nida/ SHAY RUELAS Staff Physician Signed: 03/14/2024 12:24 SHAY RUELAS [facility] Mar 14, 2024 10:43 AM NURSING NOTE: LOCAL TITLE: V15 PACT FACE TO FACE NOTE ST[facility] STANDARD TITLE: NURSING NOTE DATE OF NOTE: MAR 14, 2024@10:43 ENTRY DATE: MAR 14, 2024@10:43:44 AUTHOR: JOSÉ MIGUEL MONDRAGON COSIGNER: URGENCY: STATUS: COMPLETED Provider Visit: Patient Identifiers : Full Name Date of Reason for visit: Established Follow-Up Mode of Arrival: Ambulatory Allergy Review: SULFA DRUGS, CONTRAST MEDIA Allergy list reviewed and remains current. Recent Vital Signs: Temperature: 97.8 F [36.6 C] (03/14/2024 10:41) Pulse: 71 (03/14/2024 10:41) Respiration: 18 (03/14/2024 10:41) B/P: 133/82 (03/14/2024 10:41) Pain: 0 (03/14/2024 10:41) Wt: 238.6 lb [108.23 kg] (03/14/2024 10:41) Ht: 72 in [182.9 cm] (03/24/2023 08:55) BMI: 32.4 POX: 97% (03/14/2024 10:41) Would you like to discuss any personal problem, family problem, alcohol use, drug use, or a mental or emotional illness? No Contact provided Primary Care phone number and encouraged to call if any questions or concerns. Review that after hours nurse line [phone] and emergency room are available 21/11 for patient use. Contact verbalized good understanding. Toxic Exposure Screening - CP,DI,L,NS,P,PH,S,U: The /caregiver was asked if they believe the [place] experienced any toxic exposure(s), such as Airborne Hazards and Open Burn Pit, Door War related exposures, Agent [place], Radiation, contaminated water at [place] or other such exposures, while serving in the Armed Forces. [place]/caregiver believes the was exposed to the following while serving in the Armed Forces: Agent [place]: /caregiver was made aware of educational resources that includes information on the Registry Program, presumptive conditions and how to file a claim. Printed information was offered and provided if desired. No questions at this time /caregiver was informed of local points of contact. Contact information for local resources: [facility] System Registry Exam Program: [phone] Eligibility: [phone] ASHLEY [id number] Toxic Exposure Screening Follow-Up reminder is needed. Name of person notified: Dr. Ruelas Frail/Elderly Screen: ADL Screen - Perez Index of [place] in Activities of Daily Living Bathing: (3 Points) Receives no assistance (gets in and out of tub by self, if tub is usual means of bathing) Dressing: (3 Points) Gets clothes and gets completely dressed without assistance. Toileting: (3 Points) Goes to toilet room , cleans self, and arranges clothes without assistance (may use object for support such as cane, walker, or wheelchair, and may manage own night bedpan or commode, emptying same next morning) Transferring: (3 Points) Moves in and out of bed and in and out of chair without assistance (may be using object for support, such as cane or walker) Continence: (3 Points) Controls urination and bowel movement completely by self Feeding: (3 Points) Feeds self without assistance Total Score: 18 Points 18 = High (patient independent) 6 = Low (patient very dependent) IADL Screen - [place] Instrumental Activities of Daily Living Scale Ability to use telephone: (1 point) Operates Telephone on own initiative; looks up and dials numbers. Shopping: (1 point) Takes care of all shopping needs independently. Food preparation: (1 point) Plans, prepares, and serves adequate meals independently. Housekeeping: (1 point) Performs light daily tasks such as dishwashing, bed making. Laundry: (1 point) Launders small items, rinses socks, stockings, etc. Mode of transportation: (1 point) Travels independently on public transportation or drives own car. Responsibility for own medications: (1 point) Is responsible for taking medications in correct dosages at correct times. Ability to handle finances: (1 point) Manages financial matters independently (budgets, writes checks, pays rent and bills, goes to bank); collects and keeps track of income. Total score: 8 points 8 = High function, independent 0 = Low function, dependent Falls Screen: No falls within the past 12 months. Incontinence Screen: No incontinence. Tobacco Use Screening - U,L,N,S,PS,M,DE,PH,P: The patient has never smoked cigarettes. The patient has never used other types of tobacco. Alcohol Use Screen (AUDIT-C) - V: Alcohol Screen: SCREEN FOR ALCOHOL (AUDIT-C) An alcohol screening test (AUDIT-C) was negative (score=0). 1. How often did you have a drink containing alcohol in the past year? Consider a drink to be a 12 ounce can or bottle of regular beer, 8 ounces of malt liquor, a 5 ounce glass of table wine, or a 1.5 ounce shot of liquor (like scotch, gin, or vodka). Never 2. How many drinks containing alcohol did you have on a typical day when you were drinking in the past year? Response not required due to responses to other questions. 3. How often did you have six or more drinks on one occasion in the past year? Response not required due to responses to other questions. Depression Screening - V: Perform PHQ-2 A PHQ-2 screen was performed. The score was 0 which is a negative screen for depression. Over the past two weeks, how often have you been bothered by the following problems? 1. Little interest or pleasure in doing things Not at all 2. Feeling down, depressed, or hopeless Not at all Suicide Screen - V: C-SSRS Screening [place]-Suicide Severity Rating Scale (C-SSRS Screener) 1. Over the past month, have you wished you were or wished you could go to sleep and not wake up? No 2. Over the past month, have you had any actual thoughts of killing yourself? No 3. Over the past month, have you been thinking about how you might do this? Response not required due to responses to other questions. 4. Over the past month, have you had these thoughts and had some intention of acting on them? Response not required due to responses to other questions. 5. Over the past month, have you started to work out or worked out the details of how to kill yourself? Response not required due to responses to other questions. 6. If yes, at any time in the past month did you intend to carry out this plan? Response not required due to responses to other questions. 7. In your lifetime, have you ever done anything, started to do anything, or prepared to do anything to end your life (for example, collected pills, obtained a gun, gave away valuables, went to the roof but didn't jump)? No 8. If YES, was this within the past 3 months? Response not required due to responses to other questions. /nida/ JOSÉ MIGUEL MONDRAGON LPN LICENSED PRACTICAL NURSE Signed: 03/14/2024 10:50 JOSÉ MIGUEL MONDRAGON [facility]
[2024-06-25 08:40] VITALS: BP 155/88; PULSE 80; RESP 18; TEMP 35.9; O2SAT 97; BMI 31.9
--- NOTE | 2024-06-25 08:49 | P.PNAN_ITS ---
Anes - Initial Pre Proc Eval Procedure: Operation Date: 06/25/24 10:00 Proposed Procedures p Colonoscopy - Alexi Clark MD Date/Time: 06/25/24 08:49 Surgeon: Alexi Clark MD Pre Op Diagnosis: family hx of malignant neoplasm of digestive organ Patient Data Age: 73 Gender: M Height: 1.83 m Weight: 106.9 kg Last Vital Signs Temp 35.9 C L 06/25/24 08:40 Pulse 80 06/25/24 08:40 Resp 18 06/25/24 08:40 BP 155/88 H 06/25/24 08:40 Pulse Ox 97 06/25/24 08:40 O2 Del Method Room Air 06/25/24 08:40 Allergies Allergy/AdvReac Type Severity Reaction Status Date / Time Sulfa (Sulfonamide Allergy Unknown Rash Verified 06/25/24 08:39 Antibiotics) Iodinated Contrast Media AdvReac Itching Verified 06/25/24 08:39 Home Medications ?Medication ?Instructions ?Recorded ?Confirmed ?Type cyclobenzaprine 10 mg tablet 10 mg PO TID PRN muscle spasm #30 12/09/21 06/17/24 Rx tabs cetirizine 10 mg tablet (Zyrtec) 10 mg PO DAILY PRN allergy 03/17/22 06/17/24 Rx symptoms #90 tabs polyethylene glycol 3350 17 17 g PO DAILY #510 grams 03/17/22 06/17/24 Rx gram/dose oral powder (Miralax) fluticasone propionate 50 2 spray intranasal DAILY #16 grams 07/05/22 06/17/24 Rx mcg/actuation nasal spray,suspension (Flonase Allergy Relief) mecobalamin (vitamin B12) 1,000 1,000 mcg sublingual DAILY #30 tabs 03/28/23 06/17/24 Rx mcg disintegrating tablet,sublingual pantoprazole 40 mg tablet,delayed See Rx Instructions .Route 12/06/23 06/17/24 Rx release .COMPLEX #90 tabs amlodipine 2.5 mg tablet (Norvasc) 2.5 mg PO DAILY #90 tabs 06/03/24 06/17/24 Rx Patient hx anesthesia problems: none Family hx anesthesia problems: none Results Review: All pre-operative results and documents have been reviewed as part of the pre- operative evaluation. [facility] Past Medical History Medical History (Updated 06/25/24 @ 08:50 by Murtaza Malloy DO) Prostate CA Hypertension GERD (gastroesophageal reflux disease) Family History Family History Mother Diabetes mellitus Hypertension Heart problem Father Carcinoma of colon Diabetes mellitus Social History Social History Smoking status: Never smoker Second hand tobacco smoke exposure: No Alcohol intake: never Substance use: never Substance use type: does not use Lack of Transportation: No Lack of Food: Never True Current Housing: I Have Housing Concerned About Future Housing: No Difficulty Paying Gas/Electric Bills: No Difficulty Paying for Meds: No Currently Unemployed: Decline to Answer Education: Decline to Answer Difficulty w/ Childcare or Family Care: No Living arrangements: with family Gender identity (if verbalized by the patient): Male Spiritual care concerns: No Anes - Eval Final PreProcedure Day of Procedure 06/25/24 08:49 Patient weight: obese Heart: regular rate and rhythm Lungs: clear to auscultation Airway: Mallampati scale class II Neurological: alert and oriented Last oral intake: >/= 8 hours ASA classification: III Emergent: no Anesthetic plan: proceed Anesthesia type and monitoring: general GIVS and standard monitoring Results Review: All pre-operative results and documents have been reviewed as part of the pre- operative evaluation. Informed Consent: The patient's anesthetic plan and its attendant risks and benefits were discussed with the patient/family/POA. Questions were solicited and answers provided to the satisfaction of the patient/family/POA.
[2024-06-25] MEDS: LACTATED RINGERS 1,000 ML 150 ML IV CONT (08:51)
--- NOTE | 2024-06-25 09:43 | PM.IMHP ---
H&P: HPI History of Present Illness Date/Time: 06/25/24 09:43 Chief Complaint: Screening colonoscopy Narrative: This is the patient's 3rd colonoscopy. There are no GI symptoms and there is no family history of colorectal cancer. Review of Systems Review of Systems: All systems reviewed & are unremarkable except as noted in HPI and below PMFSH Past Medical History Medical History (Updated 06/25/24 @ 08:50 by Murtaza Malloy DO) Prostate CA Hypertension GERD (gastroesophageal reflux disease) Family History Family History Mother Diabetes mellitus Hypertension Heart problem Father Carcinoma of colon Diabetes mellitus Social History Social History Smoking status: Never smoker Second hand tobacco smoke exposure: No Alcohol intake: never Substance use: never Substance use type: does not use Lack of Transportation: No Lack of Food: Never True Current Housing: I Have Housing Concerned About Future Housing: No Difficulty Paying Gas/Electric Bills: No Difficulty Paying for Meds: No Currently Unemployed: Decline to Answer Education: Decline to Answer Difficulty w/ Childcare or Family Care: No Living arrangements: with family Gender identity (if verbalized by the patient): Male Spiritual care concerns: No Meds Home Medications and Allergies Home Medications ?Medication ?Instructions ?Recorded ?Confirmed ?Type cyclobenzaprine 10 mg tablet 10 mg PO TID PRN muscle spasm #30 12/09/21 06/17/24 Rx tabs cetirizine 10 mg tablet (Zyrtec) 10 mg PO DAILY PRN allergy 03/17/22 06/17/24 Rx symptoms #90 tabs polyethylene glycol 3350 17 17 g PO DAILY #510 grams 03/17/22 06/17/24 Rx gram/dose oral powder (Miralax) fluticasone propionate 50 2 spray intranasal DAILY #16 grams 07/05/22 06/17/24 Rx mcg/actuation nasal spray,suspension (Flonase Allergy Relief) mecobalamin (vitamin B12) 1,000 1,000 mcg sublingual DAILY #30 tabs 03/28/23 06/17/24 Rx mcg disintegrating tablet,sublingual pantoprazole 40 mg tablet,delayed See Rx Instructions .Route 12/06/23 06/17/24 Rx release .COMPLEX #90 tabs amlodipine 2.5 mg tablet (Norvasc) 2.5 mg PO DAILY #90 tabs 06/03/24 06/17/24 Rx Allergies Allergy/AdvReac Type Severity Reaction Status Date / Time Sulfa (Sulfonamide Allergy Unknown Rash Verified 06/25/24 08:39 Antibiotics) Iodinated Contrast Media AdvReac Itching Verified 06/25/24 08:39 Vital Signs Vital Signs - 24 hr 06/25/24 08:40 Temperature 96.7 F L Pulse Rate 80 Respiratory Rate 18 Blood Pressure 155/88 H Pulse Oximetry 97 Oxygen Delivery Room Air Exam Const: General: cooperative and healthy appearing Resp: Effort & Inspection: normal respiratory effort and able to speak in complete sentences Auscultation: clear to auscultation bilaterally Cardio: Rate: regular rate Rhythm: regular rhythm GI: Inspection: normal to inspection GI Palp: No No hepatosplenomegaly present Auscultation: normal bowel sounds Rectal Exam: deferred Skin: General skin exam: normal color Psych: Appearance: grossly normal Mental Status: mental status grossly normal Assessment and Plan Assessment and plan (1) Colon cancer screening: Code(s): Z12.11 - Encounter for screening for malignant neoplasm of colon Status: Acute Assessment and Plan: The patient is deemed a good candidate for the procedure. Consent signed. Will proceed.
[2024-06-25] MEDS: SIMETHICONE ORAL SUSPENSION 20 MG/0.3 ML 30 ML BOTTLE 0.6 ML IRRIGATION (10:01)
[2024-06-25 10:09] VITALS: BP 129/76; PULSE 69; RESP 18; O2SAT 97
[2024-06-25 10:19] VITALS: BP 130/76; PULSE 64; RESP 15; O2SAT 99
[2024-06-25 10:29] VITALS: BP 152/92; PULSE 63; RESP 25; O2SAT 100
== END 2024-06-25 10:43 | disposition home or self-care (01) ==
PROVIDERS: PCP Family Medicine; Visit Provider Internal Medicine Gastroenterology
PROC: 0DJD8ZZ Inspection of Lower Intestinal Tract, Via Natural or Artificial Opening Endoscopic (ICD-10-PCS; CPT 45378; principal; 2024-06-25 10:00)
DX: Z12.11 Encounter for screening for malignant neoplasm of colon (principal); K64.8 Other hemorrhoids; Z80.0 Family history of malignant neoplasm of digestive organs; E66.9 Obesity, unspecified; Z68.32 Body mass index [BMI] 32.0-32.9, adult
CPT/HCPCS: G0105; J2003; J2704; J7120

== ENCOUNTER 2024-07-03 10:30 | Outpatient (CLI) | payer MEDICARE, OTHER, SELFPAY ==
--- OUTSIDE RECORDS SUMMARY | 2024-07-03 11:52 | XMS_ITS | Patient Health Summary ---
Author Organization [facility] Address [address] [place] [address] Care Team Providers Care Ambulatory Analyst Name Role Phone Unavailable Primary Care Provider Unavailabl e Note from [facility],non-owned Affiliates and Associated Physician Practices is amultiple site organization consisting of ambulatory clinics and hospital sitesin [place], [place], [place]. This disclosure is being madepursuant to the Care Everywhere program and may not contain all information available regarding this patient. Last updated 18.[facility] Social History Tobacco Use Types Packs/Day Years Used Date Smoking Tobacco: Never Assessed Sex and Gender Information Value Date Recorded Sex Assigned at Not on file Gender Identity Not on file Sexual Orientation Not on file Procedures * DERMATOPATHOLOGY(Performed 05/21/2021) * DERMATOPATHOLOGY(Performed 05/18/2011) Results * DERMATOPATHOLOGY (05/21/2021 12:00 AM [facility]) Only the most recent of2 resultswithin the time period is included. Case Report Dermatopathology Report Case: [id number] Authorizing Provider: Johann Harris MD Collected: 05/21/2021 12:00 AM Ordering Location: [facility] DermPath Lab Received: 05/24/2021 12:20 PM Pathologist: Kamaljit Villela MD Specimen: Skin, right cheek 2 6:29 PM [facility] Final Diagnosis Specimen A. SKIN, right cheek: BASAL CELL CARCINOMA, NODULAR TYPE (C44.319) CALCINOSIS CUTIS (L94.2) 2 6:29 PM [facility] Clinical History BCC. 2 6:29 PM [facility] Gross Description Specimen A: Received is one formalin filled container labeled with the patient's name and designated right cheek. The specimen consists of a shave biopsy measuring [id number]. Jar 0. 2 6:29 PM [facility] DERMATOPATHOLOGY LABORATORY Microscopic Description Specimen A. SKIN, right cheek: Within the dermis there are aggregates of basaloid cells with a high nuclear to cytoplasmic ratio and peripheral palisading. Within the dermis, there are aggregates of homogenous amorphous basophilic material consistent with calcium. 2 6:29 PM [facility] DERMATOPATHOLOGY LABORATORY Disclaimer An external and internal positive and negative controls are appropriate for the histochemical, immunohistochemical and immunofluorescence stain(s) in this case (if any), except where stated explicitly. The performance characteristics of the stain(s) cited in this report were developed and its performance characteristic determined by the Dermatopathology Laboratory at [facility], directed by Dr. Marzena Villela. These tests need not be, and therefore are not, approved by the [place] Food and Drug Administration. The tests are used for clinical purposes. Billing Codes Specimen Charges Stain Charges 80176 1 2 6:29 PM [facility] DERMATOPATHOLOGY LABORATORY Embedded Images 2 6:29 PM [facility] DERMATOPATHOLOGY LABORATORY Pathology/Cytolog y TISSUE SPECIMEN FROM SKIN / Unknown 05/21/2021 05/24/2021 12:20 PM [facility] Johann Harris MD LAB - PATHOLOGY/CYTO LOGY ORDERABLES DERMATOPATHOLOGY LABORATORY [facility] - Department of Dermatology [address] [phone]
--- OUTSIDE RECORDS SUMMARY | 2024-07-03 11:52 | XMS_ITS | Clinical Summary ---
Author Organization [facility] Address [address] [place] [address] Care Team Providers Care Tubing Mill Setter Name Role Phone Unavailable Primary Care Provider Unavailabl e Source Comments [facility],non-owned Affiliates and Associated Physician Practices is amultiple site organization consisting of ambulatory clinics and hospital sitesin [place], [place], [place] and [place]. This disclosure is being madepursuant to the Care Everywhere program and may not contain all information available regarding this patient. Last updated 18.[facility] Social History Tobacco Use Types Packs/Day Years [...] on patient's [place] [address]
--- OUTSIDE RECORDS SUMMARY | 2024-07-03 11:52 | XMS_ITS | Referral Summary ---
Author Organization [facility] Address [address] [place] [address] Care Team Providers Care Rn Dialysis Name Role Phone Unavailable Primary Care Provider Unavailabl e Source Comments [facility],non-owned Affiliates and Associated Physician Practices is amultiple site organization consisting of ambulatory clinics and hospital sitesin [place], [place], [place] and [place]. This disclosure is being madepursuant to the Care Everywhere program and may not contain all information available regarding this patient. Last updated 18.[facility] Social History Tobacco Use Types Packs/Day Years Used Date Smoking Tobacco: Never Assessed Sex and Gender Information Value Date Recorded Sex Assigned at Not on file Gender Identity Not on file Sexual Orientation Not on file Plan of Treatment Not on file
--- OUTSIDE RECORDS SUMMARY | 2024-07-03 11:53 | XMS_ITS | Continuity of Care Document ---
Author Name [facility] Organization [facility] Care Team Providers Care Jira Administrator Name Role Phone [facility] Unavailable Unavailable Problems Combined list of problems from [facility] and [facility] [place] [facility] facilities. It does not include entries that were removed or entered in error. 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 and [facility] [place] [facility] facilities.Medications provided include 1) outpatient medications from the last 15 months, and 2) patient-reported medications. Medication Details Route Status Patient Instructions Prescription Expires Prescription Number Last Dispense Date Ordering Provider Order Date Order Qty Source ACETAMINOPH EN 325MG TAB TAKE TWO TABLETS BY MOUTH FOUR TIMES A DAY NEEDED ORAL ACTIVE SHAY RAMIRES 2022 [facility] Meloxicam (Meloxicam) , 15mg, Tablet, Oral, [place] Pharmac, 1000 Ea. Bottle Active [id number] 4 2023 30 Pharmac y Data Transac tion Service Facilit y Meloxicam (Meloxicam) , 15mg, Tablet, Oral, [place] Pharmac, 1000 Ea. Bottle Active [id number] 4 2023 30 Pharmac y Data Transac tion Service Facilit y PANTOPRAZOL E SODIUM (pantoprazo le sodium), 40 MG, TK OLGUIN, ORAL, AJANTA PHARMA L, 30 ea. PACKET Cancele d [id number] : 2023 0 Pharmac y Data Transac tion Service Facilit y PANTOPRAZOL E SODIUM (pantoprazo le sodium), 40 MG, GRANPKT , ORAL, AJANTA PHARMA L, 30 ea. PACKET Cancele d [id number] : 2022 0 Pharmac y Data Transac tion Service Facilit y PANTOPRAZOL E SODIUM (pantoprazo le sodium), 40 MG, GRANPKT , ORAL, AJANTA PHARMA L, 30 ea. PACKET Active [id number] 4 2023 90 Pharmac y Data Transac tion Service Facilit y PANTOPRAZOL E SODIUM (PANTOPRAZO LE SODIUM), 40 MG, TABLET , ORAL, MYLAN, 90 ea. BOTTLE Active [id number] 4 2023 90 Pharmac y Data Transac tion Service Facilit y Allergies, Adverse Reactions, Alerts Combined list of allergies from Department of Defense and Veterans Affairs facilities. It does not include entries that were removed or entered in error. Substance Category Reaction Severity Reaction type Status Date Reported Comments Source CONTRAST MEDIA Propensity to adverse reactions to drug (finding) Urticaria active 3 [facility] LISINOPRIL Propensity to adverse reactions to drug (finding) Cough active 4 [facility] SULFA DRUGS Propensity to adverse reactions to drug (finding) Urticaria active 3 [facility] SULFA-DRUGS Drug allergy (disorder) Unknown active 5 [facility] Immunizations Combined list of available immunizations from the Department of Defense and Veterans Affairs facilities. Immunization Series Date Given Administered By Site Reaction Lot Number CVX Code Drug Project Superintendent Status Comments Source tuberculin skin test; purified protein derivative solution, intradermal 1 2001 Unknown, Provider [id number] Sanofi Pasteur ([facility]) complet ed tuberculi n skin test; purified protein derivativ e solution, intraderm al DoD rabies vaccine, for intramuscular injection RETIRED CODE 3 1999 Unknown, Provider 18 () complet ed rabies vaccine, for intramusc ular injection RETIRED CODE DoD Bermudian Encephalitis Vaccine SC 3 1999 Unknown, Provider 39 () complet ed Bermudian Encephali tis Vaccine SC DoD rabies vaccine, for intramuscular injection RETIRED CODE 2 1999 Unknown, Provider [id number] 18 Sanofi Pasteur ([facility]) complet ed rabies vaccine, for intramusc ular injection RETIRED CODE DoD Bermudian Encephalitis Vaccine SC 2 1999 Unknown, Provider [id number] A 39 Sanofi Pasteur ([facility]MC) complet ed Bermudian Encephali tis Vaccine SC DoD rabies vaccine, for intramuscular injection RETIRED CODE 1 1999 Unknown, Provider [id number] 18 Sanofi Pasteur ([facility]MC) complet ed rabies vaccine, for intramusc ular injection RETIRED CODE DoD Bermudian Encephalitis Vaccine SC 1 1999 Unknown, Provider EJN*194 A 39 Sanofi Pasteur ([facility]MC) complet ed Bermudian Encephali tis Vaccine SC DoD hepatitis B vaccine, adult dosage 3 1999 Unknown, Provider [id number] 43 [place]le (LED) complet ed hepatitis B vaccine, adult dosage DoD hepatitis A vaccine, adult dosage 2 1999 Unknown, Provider [id number] 52 [place] (LED) complet ed hepatitis A vaccine, adult dosage DoD yellow fever vaccine 1 1999 Unknown, Provider [id number] 37 [place] (CON) complet ed yellow fever vaccine [facility] tuberculin skin test; purified protein derivative solution, intradermal 1 1999 Unknown, Provider [id number] [place] (CON) complet ed tuberculi n skin test; purified protein derivativ e solution, intraderm al [facility] meningococcal polysaccharid e vaccine (MPSV4) 1 1999 Unknown, Provider [id number] 32 [place] (CON) complet ed meningoco ccal polysacch aride vaccine (MPSV4) [facility] typhoid vaccine, parenteral, other than acetone-kille d, dried 1 1999 Unknown, Provider [id number] [place] (CON) complet ed typhoid vaccine, parentera l, other than acetone-k illed, dried [facility] tetanus and diphtheria toxoids, adsorbed, preservative free, for adult use (2 Lf of tetanus toxoid and 2 Lf of diphtheria toxoid) 1 1999 Unknown, Provider [id number] 09 [place] (CON) complet ed tetanus and diphtheri a toxoids, adsorbed, preservat grisel free, for adult use (2 Lf of tetanus toxoid and 2 Lf of diphtheri a toxoid) [facility] poliovirus vaccine, inactivated 1 1999 Unknown, Provider [id number] 10 Mynor (CON) complet ed polioviru s vaccine, inactivat ed DoD hepatitis B vaccine, adult dosage 2 1999 Unknown, Provider [id number] 43 Merck (MSD) complet ed hepatitis B vaccine, adult dosage DoD hepatitis B vaccine, adult dosage 1 1999 Unknown, Provider [id number] 43 SmithKline (SKB) complet ed hepatitis B vaccine, adult dosage DoD hepatitis A vaccine, adult dosage 1 1999 Unknown, Provider [id number] 52 Merck (MSD) complet ed hepatitis A vaccine, adult dosage DoD Vital Signs Combined list of inpatient and outpatient Vital Signs from [facility] and [facility] Affairs, ranging from 12 months to all on record, depending upon the facility. Vital Sign Value Date Comments Source SYSTOLIC BLOOD PRESSURE 133 03/14/2024 10:41:02 [facility] DIASTOLIC BLOOD PRESSURE 82 03/14/2024 10:41:02 [facility] PULSE OXIMETRY 97 03/14/2024 10:41:02 [facility] WEIGHT 238.6 03/14/2024 10:41:02 [facility] BMI 32 kg/m2 03/14/2024 10:41:02 [facility] PAIN 0 03/14/2024 10:41:02 [facility] TEMPERATURE 97.8 03/14/2024 10:41:02 [facility] PULSE 71 03/14/2024 10:41:02 [facility] RESPIRATION 18 03/14/2024 10:41:02 [facility] Encounters Combined list of: 1) Encounters from Department of Veterans Affairs facilities going backup to the last 18 months, not all VA inpatient encounters are included; 2) Encounters from the Department of Defense facilities going backup to 280 months. Location Location Details Encounter Type Encounter Number Reason For Visit Attending Provider ADM Date DC Date Status Disposition Source [facility](Emerge ncy Rm) OUTPATIENT [id number] PAOLO BLACK RA F 06/05 Released w/o Limitations [facility](Billie gency Rm) [facility] Outpatient Encounter [id number] 03/24 [facility] OFFICE O/P [place] 60-74 MIN [id number] Diagnos is: ICD-10- CM H90.3 Sensori neural hearing loss, donny BarcenasSHAY L 03/24 [facility] OFFICE O/P EST MOD 30-39 MIN [id number] Diagnos is: ICD-10- CM Z98.49 Catarac t extract ion status, unspeci fied eye LAURA WARREN TTHEW C 04/26 [facility] HEARING AID REPAIR/MOD IFYING [id number] Diagnos is: ICD-10- CM H90.3 Sensori neural hearing loss, PAVEL Walker B 05/09 [facility] HEARING AID FITTING/CH ECKING [id number] Diagnos is: ICD-10- CM H90.3 Sensori neural hearing loss, PAVEL Walker B 06/05 [facility] N [facility] TYMPANOMET RY & REFLEX THRESH [id number] Diagnos is: ICD-10- CM H90.3 Sensori neural hearing loss, PAVEL Walker B 06/05 [facility] HEARING AID FITTING/CH ECKING [id number] Diagnos is: ICD-10- CM H90.3 Sensori neural hearing loss, donny rodriguez TATIANNAPAVEL 08/01 [facility] OFFICE O/P EST MOD 30 MIN [id number] Diagnos is: ICD-10- CM D07.5 Carcino ma in situ of prostat e SHAY RAMIRES 03/14 [facility] Procedures Combined list of: 1) Procedures from Department of Veterans Affairs facilities going back up to thelast 18 months, not all [place] non-surgical procedures are included; 2) All procedures from the Department of Defense facilities. Procedure Procedure Type Code Date Perfomer Comments Sourc e REMOVAL OF SUTURES; BY A PHYSICIAN OTHER THAN THE PHYSICIAN WHO ORIGINALLY CLOSED THE WOUND 07/02/2002 [facility] BIOPSY OF SKIN, SUBCUTANEOUS TISSUE AND/OR MUCOUS MEMBRANE (INCLUDING SIMPLE CLOSURE), UNLESS OTHERWISE LISTED; SINGLE LESION 06/28/2002 [facility] CARDIOVASCULAR STRESS TEST USING MAXIMAL OR SUBMAXIMAL TREADMILL OR BICYCLE EXERCISE,CONTINUOUS ELECTROCARDIOGRAPHIC MONITORING,AND/OR PHARMACOLOGICAL STRESS;W SUPERVISION,INTERPRETATION AND REPORT 06/27/2002 [facility] Social History Combined list of available smoking, tobacco, and other social history from Department of Defense and Veterans Affairs facilities. Social History Type Response Date Comment Sourc e Tobacco smoking status NHIS [facility]-TOBACCO NEVER USED CIGARETTES 03/14/2024 [facility] 03/14/2024 [facility] History of tobacco use [place]-TOBACCO NEVER USED 03/24/2023 [facility] This section is an empty social history section. DoD
--- OUTSIDE RECORDS SUMMARY | 2024-07-03 11:53 | XMS_ITS | Clinical Summary ---
Author Organization [facility] Address [address] [place] [address] Care Team Providers Care Marketing Assistant Manager Name Role Phone Unavailable Primary Care Provider Unavailabl e Encounters Date Type Department Care Team Description 06/25/2024 External Device Data [facility] ABSTRACTION Provider, Abstract 05/29/2024 External Device Data [facility] ABSTRACTION Provider, [...] Colonography Q 5 years 1993 PNEUMOCOCCAL VACCINE 50+ YEARS (1 of 1 - PCV) 08/11/18 99 ZOSTER VACCINE (1 of 2) 1998 RSV VACCINE (60+ or ) (1 - 1-dose 75+ series) 08/12/2023 INFLUENZA VACCINE (#1) 2023 Insurance [employer]
--- OUTSIDE RECORDS SUMMARY | 2024-07-03 11:53 | XMS_ITS | Encounter Summary ---
Author Organization [facility] Address [address] [place] [address] Care Team Providers Care Food Assembler Kitchen Name Role Phone Unavailable Primary Care Provider Unavailabl e Encounter Details Date Type Department Care Team (Late st Contact Info) Description 05/24/2021 Lab Requisition [facility] DermPath Lab [address] [place] [id number] Johann Harris MD [address] [address] Social History Tobacco Use Types [...] Comments DERMATOPATHOLOGY Routine 05/21/2021 12:0 0 AM [facility] RADIO OPERATOR documented in this encounter Results * DERMATOPATHOLOGY (05/21/2021 12:00 AM [facility] RADIO OPERATOR) Case Report Dermatopathology Report Case: [id number] Authorizing Provider: Johann Harris MD Collected: 05/21/2021 12:00 AM Ordering Location: [facility] DermPath Lab Received: 05/24/2021 12:20 PM Pathologist: Kamaljit Villela MD Specimen: Skin, right cheek 2 6:29 PM [facility] RADIO OPERATOR DERMATOPATHOLOGY LABORATORY Final Diagnosis Specimen A. SKIN, right cheek: BASAL CELL CARCINOMA, NODULAR TYPE (C44.319) CALCINOSIS CUTIS (L94.2) 2 6:29 PM [facility] RADIO OPERATOR DERMATOPATHOLOGY LABORATORY Clinical History BCC. 2 6:29 PM [facility] DERMATOPATHOLOGY LABORATORY Gross Description Specimen A: Received is one formalin filled container labeled with the patient's name and designated right cheek. The specimen consists of a shave biopsy measuring [id number]. Jar 0. 2 6:29 PM [facility] DERMATOPATHOLOGY LABORATORY Microscopic Description Specimen A. SKIN, right cheek: Within the dermis there are aggregates of basaloid cells with a high nuclear to cytoplasmic ratio and peripheral palisading. Within the dermis, there are aggregates of homogenous amorphous basophilic material consistent with calcium. 2 6:29 PM [facility] DERMATOPATHOLOGY LABORATORY Disclaimer An external and internal positive and negative controls are appropriate for the histochemical, immunohistochemical and immunofluorescence stain(s) in this case (if any), except where stated explicitly. The performance characteristics of the stain(s) cited in this report were developed and its performance characteristic determined by the Dermatopathology Laboratory at [facility], directed by Dr. Marzena Villela. These tests need not be, and therefore are not, approved by the [place] Food and Drug Administration. The tests are used for clinical purposes. Billing Codes Specimen Charges Stain Charges 58605 1 2 6:29 PM [facility] RADIO OPERATOR DERMATOPATHOLOGY LABORATORY Embedded Images 2 6:29 PM [facility] DERMATOPATHOLOGY LABORATORY Pathology/Cytolog y TISSUE SPECIMEN FROM SKIN / Unknown 05/21/2021 05/24/2021 12:20 PM [facility] RADIO OPERATOR Johann Harris MD LAB - PATHOLOGY/CYTO LOGY ORDERABLES DERMATOPATHOLOGY LABORATORY [facility] - Department of Dermatology [address] [phone] documented in this encounter Visit Diagnoses Not on filedocumented in this encounter
[2024-07-03 18:22] LABS: Hemoglobin 13.8 g/dL (14.0-18.0); Mean Corpuscular HGB Conc 30.7 g/dl (32-36); Mean Corpuscular Hemoglobin 27.2 pg (26-34); Mean Corpuscular Volume 88.8 fl (80-100); Mean Platelet Volume 9.6 fl (7.4-10.4); Platelet Count Result 335 k/mm3 (150-375); Red Blood Count 5.07 M/mm3 (4.6-6.20); Red Cell Distribution Width 13.4 % (11.5-14.5); White Blood Count 6.2 K/mm3 (4.5-10.0)
[2024-07-03 18:36] LABS: Alanine Aminotransferase 31 U/L (6-50); Albumin Level 4.3 g/dL (3.5-5.1); Alkaline Phosphatase 120 U/L (38-126); Anion Gap 9 mmol/L (4-12); Aspartate Amino Transferase 44 U/L (17-59); Bilirubin,Total 0.6 mg/dL (0.2-1.3); Blood Urea Nitrogen 21 mg/dL (9-20); Calcium 10.1 mg/dL (8.4-10.2); Carbon Dioxide 33 mmol/L (22-30); Chloride 99 mmol/L (98-107); Cholesterol 210 mg/dL (0-200); Estimated Glomerular Filt Rate > 60; Glucose 107 mg/dL (65-110); HDL Direct 58 mg/dL; Sodium 141 mmol/L (137-145); Triglycerides 155 mg/dL (<150)
[2024-07-03 18:48] LABS: LDL Cholesterol Direct 86 mg/dL
== END 2024-07-03 10:31 | disposition home or self-care (01) ==
PROVIDERS: PCP Family Medicine; Visit Provider Family Medicine
DX: M25.511 Pain in right shoulder (principal); H26.9 Unspecified cataract; K21.9 Gastro-esophageal reflux disease without esophagitis; Z00.00 Encounter for general adult medical examination without abnormal findings; R07.89 Other chest pain
CPT/HCPCS: 36415; 80053; 80061; 85027

== ENCOUNTER 2024-10-02 12:16 | Outpatient (CLI) | payer MEDICARE, OTHER, SELFPAY ==
--- NOTE | ~2024-10-02 | PE_ITS ---
EXAMINATION: PET_PETPSMAST_PT DATE: 10/03/2024 07:49 INDICATION: Prostate cancer TECHNIQUE: 5.771 mCi of Illucix Ga-68([id number]) was administered i.v. Low dose computed kalyan graphy (CT) images were acquired from the base of the brain to the base of the brain to the proximal thighs for attenuation correction and anatomic localization. Positron emission tomography (PET) image s were acquired in the same distribution beginning 101 minutes after injection. Images including fuse d PET/CT images were reconstructed in axial, coronal, and sagittal planes. Automated exposure control technique was employed. The dose-length product was 1297.87mGy-cm. COMPARISON: 06/12/2023 FINDINGS: Head/neck: Typical pattern of symmetric physiologic increased activity in the lacrimal, parotid and submandibula r glands as well as along the mucosa of the nasal and oral cavities, pharynx and hypopharynx. No path ologically enlarged cervical lymphadenopathy or suspicious foci of increased uptake in the visualized head or neck. Chest: Respiratory motion in the lungs with mild discoid atelectasis in the right middle lobe. No suspicious pulmonary nodules, pneumonia, pulmonary edema or pleural effusion. Heart size is normal. No pericard ial effusion. Thoracic aorta is normal in caliber. No pathologically enlarged or PSMA avid thoracic l ymphadenopathy. Abdomen/pelvis/proximal thighs: Physiologic renal accumulation and excretion of activity in the kidneys, bladder and along portions o f ureters. Again seen are few metallic densities in the small prostate most likely fiducial markers v ersus less likely radiation therapy seeds or surgical clips. The previously seen asymmetric increased uptake at the left side of the prostate is now nearly indiscernible with maximal SUV of 3.0 consiste nt with likely response to treatment. The previously seen small focus of uptake along the posterior m argin of the right external iliac vein is no longer visualized suggesting additional response to rj tment of prior metastatic disease. Normal degree and slightly heterogenous pattern of increased uptak e throughout the liver and spleen without radiologic correlate or dominant PSMA avid lesion. The gall bladder, pancreas and bilateral adrenal glands are normal. Moderate uptake scattered throughout the b owels with typical duodenal and proximal jejunal predominance and without radiologic correlate, also likely physiologic. No other abnormal foci of increased uptake or pathologically enlarged lymphadenop athy in the abdomen, pelvis or proximal thighs. Small fat-containing left inguinal hernia. Musculoskeletal: Mild lumbar levocurvature with severe spondylosis. Additional moderate to severe spondylosis in the c ervical spine. No interval change in small densely sclerotic likely bone islands at the right sacral ala, right posterior iliac spine and right pubic body, all without abnormal activity. No suspicious l ytic, blastic or abnormally PSMA avid bone lesions. IMPRESSION: 1. Resolution of a small focus of uptake along the right external iliac chain and near complete resol ution of subtle minimally asymmetric uptake at the left posterior aspect of the small prostate consis tent with interval response to treatment of primary and likely metastatic disease. No new lesions shivani ntified. Reviewed, dictated and finalized at location A. IMPRESSION: 1. Resolution of a small focus of uptake along the right external iliac chain a nd near complete resolution of subtle minimally asymmetric uptake at the left p osterior aspect of the small prostate consistent with interval response to rj tment of primary and likely metastatic disease. No new lesions identified.
--- OUTSIDE RECORDS SUMMARY | 2024-10-02 12:19 | XMS_ITS | Clinical Summary ---
Author Organization [facility] Address [address] [place] [address] Care Team Providers Care Sales And Marketing Representative Name Role Phone Unavailable Primary Care Provider Unavailabl e Encounters Date Type Department Care Team Description 07/17/2024 External Device Data [facility] ABSTRACTION Provider, Abstract 07/08/2024 External Device Data [facility] ABSTRACTION Provider, Abstract [...] Comments DTAP/TDAP/TD VACCINES (1 - Tdap) 08/12/1967 PNEUMOCOCCAL VACCINE 50+ YEARS (1 of 1 - PCV) 08/11/18 99 ZOSTER VACCINE (1 of 2) 1998 RSV VACCINE (60+ or ) (1 - 1-dose 75+ series) 08/12/2023 INFLUENZA VACCINE (#1) [address] [place] [address] [employer]
--- OUTSIDE RECORDS SUMMARY | 2024-10-02 12:19 | XMS_ITS | Encounter Summary ---
Author Organization [facility] Address [address] [place] [address] Care Team Providers Care Stage Director Name Role Phone Unavailable Primary Care Provider Unavailabl e Encounter Details Date Type Department Care Team (Late st Contact Info) Description 05/24/2021 Lab Requisition [facility] DermPath Lab [address] [facility] [place] [id number] Johann Harris MD [address] [address] Social History Tobacco Use Types Packs/Day Years Used Date Smoking Tobacco: Never Assessed Sex and Gender Information Value Date Recorded Sex Assigned at Not on file Legal Sex Male 7:07 PM LADLE WATCHER Gender Identity Not on file Sexual Orientation Not on file documented as of this encounter Plan of Treatment Not on file documented as of this encounter Procedures Procedure Name Priority Date/Time Associated Diagnosis Comments DERMATOPATHOLOGY Routine 05/21/2021 12:0 0 AM LADLE WATCHER documented in this encounter Results * DERMATOPATHOLOGY (05/21/2021 12:00 AM LADLE WATCHER) Case Report Dermatopathology Report Case: [id number] Authorizing Provider: Johann Harris MD Collected: 05/21/2021 12:00 AM Ordering Location: [facility] DermPath Lab Received: 05/24/2021 12:20 PM Pathologist: Kamaljit Villela MD Specimen: Skin, right cheek 2 6:29 PM LADLE WATCHER DERMATOPATHOLOGY LABORATORY Final Diagnosis Specimen A. SKIN, right cheek: BASAL CELL CARCINOMA, NODULAR TYPE (C44.319) CALCINOSIS CUTIS (L94.2) 2 6:29 PM LADLE WATCHER DERMATOPATHOLOGY LABORATORY at [address] LADLE WATCHER Clinical History BCC. 2 6:29 PM [facility] DERMATOPATHOLOGY LABORATORY Gross Description Specimen A: Received is one formalin filled container labeled with the patient's name and designated right cheek. The specimen consists of a shave biopsy measuring [id number]. Jar 0. 2 6:29 PM [facility] DERMATOPATHOLOGY LABORATORY Microscopic Description Specimen A. SKIN, right cheek: Within the dermis there are aggregates of basaloid cells with a high nuclear to cytoplasmic ratio and peripheral palisading. Within the dermis, there are aggregates of homogenous amorphous basophilic material consistent with calcium. 2 6:29 PM [facility] DERMATOPATHOLOGY LABORATORY Disclaimer An external [...] purposes. Billing Codes Specimen Charges Stain Charges 75866 1 2 6:29 PM [facility] DERMATOPATHOLOGY LABORATORY Embedded Images 2 6:29 PM [facility] DERMATOPATHOLOGY LABORATORY Pathology/Cytolog y TISSUE SPECIMEN FROM SKIN / Unknown 05/21/2021 05/24/2021 12:20 PM LADLE WATCHER us Johann Harris MD LAB - PATHOLOGY/CYTOLOGY ORDERAB LES Final Result DERMATOPATHOLOGY LABORATORY [facility] - Department of Dermatology [address] [phone] documented in this encounter Visit Diagnoses Not on filedocumented in this encounter
--- OUTSIDE RECORDS SUMMARY | 2024-10-02 12:19 | XMS_ITS | Data Portability ---
Author Organization [facility], Main Office Address [address] [place] [address] Care Team Providers Care Manager Social Responsibility Name Role Phone SUKH MAK Primary Care Provider SUKH MAK Referring Provider [phone] Assessment Encounter Date Assessment Date Assessment LastModified [...] a left knee meniscus procedure done in [facility] about 10 years ago when he was [...] Mobic 15 mg tablet 024 08/09/19 [email or web address] [id number], [address], [place], [place], [id number], 11:45:24 Patient TargetsNo targets recorded. Patient InstructionsNo instructions recorded. Reason for Referral None Reported. Results Created Date Observation Date Name Description Value Unit Range Abnormal Flag Note LastModifiedBy Organization Detail LastModifiedTime 08/01/19 24 07/17/2023 XR, knee No observ ation record ed. [address], [place], [address], 08/01/2023 16:29:05 08/01/19 24 07/18/2023 XR, knee No observ ation record ed. [address], [place], [address], 08/01/2023 16:29:44 08/02/19 24 07/17/2023 XR, knee, 4 or more view No observ ation record ed. [email or web address] Not Available 06/2023 15:41:50 Result Notes None recorded. Problems Name Problem SNOMED Code Status Onset Date Resolution Date Notes Provider Name and Address Organization Details Recorded Time Pain of bilateral knee joints 60480773310032 4 Active 2023 TANIA Denise mimoOn 09:29:19 Problem Notes None recorded. Procedures Surgical History Date Name Laterality Status Provider Name and Address Organization Details Recorded Time Knee Surgery completed TANIA Denise mimoOn 08/09/2023 09:28:11 Imaging Results None recorded. Procedure Notes None recorded. Medical Equipment None Reported. Allergies Allergen ID Allergen Name Allergen Category Reaction Reaction Severity Criticality Documentation Date Start Date Code Code System Note Provider Name and Address Organization Details Recorded Time 14020 sulfur dioxide medicatio n hives Not available Not available 08/09/2023 21864 79 RxNorm TANIA Denise mimoOn 4 09:25:32 86091 Iodinated contrast media (substanc e) medicatio n hives Not available Not available 08/09/2023 [id number] 2003 SNOMED TANIA Denise [employer] [facility] 09:25:56 Medications Name Sig Start Date Stop [...] height Body mass index (BMI) Body weight Provider Name and Address Organization Details Last Updated DateTime 08/09/2023 182.88 cm 31.9 kg/m2 732342.21 g TANIA Denise mimoOn 08/09/2023 09:25:06 Social History Question Answer Notes LastModified by Organizat ion Details LastModified Time Tobacco Smoking Status Unknown If Ever Smoked TANIA Denise [facility] [employer] [facility] 08/09/2023 09:27:36 What Was The Date Of Your Most Recent Tobacco Screening? 08/09/2023 [email or web address] Information not available 08/09/2023 Sex: Unknown Functional Status Question Answer Note LastModified by Organization D etails LastModified Time What is your level of alcohol consumption? None [email or web address] Information not available 08/09/2023 Mental Status None recorded. Family History Relationship Description Onset Age of this Age Resolved Age Notes LastModified by Organization Details LastModified Time Mother Heart disease Not available 2023 09:26:39 Mother Hypertensive disorder [email or web address] Not available 2023 09:26:55 Mother Diabetes mellitus [email or web address] Not available 2023 09:27:04 Medical History Condition Response CANCER: SPECIFY Y Past Encounters Encounter ID Performer Location Encounter Start Date Encounter Closed Date Diagnosis/Indication Diagnosis SNOMED-CT Code Diagnosis ICD10 Code Diagnosis Note [id number] Tadeo Tran MD [facility] [place] [address] [place] [address] 08/09/2023 09:17:03 08/09/2023 09:50:05 Pain of bilateral knee joints 5960191070 81714 M25.569 Health Concerns Section Related Observation LastModified by Organization Detai ls LastModified Time None Recorded Concern Status LastModified by Organization Details LastModified Time None Recorded Advance Directives Directive None Recorded Payers Encounter Date Sequence Insurance Name Policy Number Policy Palencia Covered Member ID Palencia Member ID Guarantor Name 08/09/2023 1 [place] Ray Santos [id number] Ray Santos 08/09/2023 2 FOR LIFE ( - MEDICARE SUPPLEMENT) Ray Santos [id number] Ray Santos
--- OUTSIDE RECORDS SUMMARY | 2024-10-02 12:19 | XMS_ITS | Clinical Summary ---
Author Organization [facility] Address [address] [place] [address] Care Team Providers Care Singing Messenger Name Role Phone Unavailable Primary Care Provider Unavailabl e Source Comments [facility],non-owned Affiliates and Associated Physician Practices is amultiple site organization consisting of ambulatory clinics and hospital sitesin [place], [place], [place] and [place]. This disclosure is being madepursuant to the Care Everywhere program and may not contain all information available regarding this patient. Last updated 18.[facility] Social History Tobacco Use Types Packs/Day Years Used Date Smoking Tobacco: Never Assessed Sex and Gender Information Value Date Recorded Sex Assigned at Not on file Legal Sex Male 7:07 PM LOSS CONTROL REPRESENTATIVE Gender Identity Not on file Sexual Orientation Not on file Plan of Treatment Health Maintenance Due Date Last Done Comments HEPATITIS C SCREENING 08/07/1966 DTAP/TDAP/TD VACCINES (1 - Tdap) 08/12/1967 PNEUMOCOCCAL VACCINE 50+ (1 of 1 - PCV) 1998 ZOSTER VACCINE (1 of 2) 1998 Respiratory Syncytial Virus (RSV) Vaccine Pt: or over 60 yrs (1 - 1-dose 75+ series) 08/12/2023 COVID-19 VACCINE ( - 2023-2 5 season) 2023 DEPRESSION SCREENING 05/01/2024 INFLUENZA VACCINE (Season Ended) 2024 HEPATITIS B VACCINE Aged Out No longe r eligible based on patient's age to complete this topic HIB VACCINE Aged Out No longer eligi ble based on patient's age to complete this topic HPV VACCINE Aged Out No longer eligi ble based on patient's age to complete this topic MENINGOCOCCAL (Group B) VACC INE SHARED DECISION-MAKING Aged Out No longer eligibl e based on patient's age to complete this topic MENINGOCOCCAL GROUPS A/C/Y/W VACCINE Aged Out No longer eligible b ased on patient's age to complete this topic [place] [address] [facility] Address: [address] [place] [address] MEDICARE
== END 2024-10-02 12:17 | disposition home or self-care (01) ==
PROVIDERS: PCP Family Medicine; Visit Provider Urology
DX: C61 Malignant neoplasm of prostate (principal)
CPT/HCPCS: 78815; A9596